=== PATIENT | male | born 1980 | race Caucasian/White ===

== ENCOUNTER 2016-09-19 00:56 | Inpatient (IN) | payer OTHER ==
--- NOTE | 2016-09-19 01:16 | HP ---
COWS - Scale Resting Pulse: 1= [place] 81-100 Sweatin=Flushed/Facial Moisture Restless Observation: 5= Unable to Sit Still Pupil Size: 2= Moderately Dilated Bone or Joint Aches: 2= Severe Diffuse Aches Runny Nose/ Eye Tearin= Nasal Congestion GI Upset > 30mins: 1= Stomach Cramp Tremor Observation: 2= Slight Tremor Visible Yawning Observation: 1= 1-2x During Session Anxiety or Irritability: 4=Extreme Anxiety Goose Flesh Skin: 0=Smooth Skin COWS Score: 21 Admission ROS S - HPI Chief Complaint: c/o of opiate withdrawal sx's. seeking detox txment Allergies/Adverse Reactions: Allergies Allergy/AdvReac Type Severity Reaction Status Date / Time No Known Allergies Allergy Verified 09/19/16 01:08 History of Present Illness: 35 Y.O. MALE KNOWN TO [facility] ADMITTED FOR DETOX TXMENT. DENIES RECENT DETOX/REHAB SERVICES. REPORTS LONGEST CLEAN TIME 2 YEARS WHILE IN OP PROGRAM. Exam Limitations: No Limitations - Ebola screening Have you traveled outside of the country in the last 21 days: No Have you had contact with anyone from an Ebola affected area: No Have you been sick,other than usual withdrawal symptoms: No Do you have a fever: No - Review of Systems Constitutional: Chills, Loss of Appetite, Malaise, Night Sweats, Changes in sleep EENT: reports: No Symptoms Reported Respiratory: reports: No Symptoms reported Cardiac: reports: No Symptoms Reported GI: reports: Nausea, Poor Appetite, Vomiting : reports: No Symptoms Reported Musculoskeletal: reports: Back Pain, Joint Pain Integumentary: reports: No Symptoms Reported Neuro: reports: No Symptoms reported Endocrine: reports: No Symptoms Reported Hematology: reports: No Symptoms Reported Psychiatric: reports: Anxious Other Systems: Reviewed and Negative Patient History - Patient Medical History Hx Anemia: No Hx Asthma: No Hx Chronic Obstructive Pulmonary Disease (COPD): No Hx Cancer: No Hx Cardiac Disorders: No Hx Congestive Heart Failure: No Hx Hypertension: No Hx Hypercholesterolemia: No Hx Pacemaker: No HX Cerebrovascular Accident: No Hx Seizures: Yes (01/2015 R/T K2) Hx Dementia: No Hx Diabetes: No Hx Gastrointestinal Disorders: No Hx Liver Disease: No Hx Genitourinary Disorders: No Hx Sexually Transmitted Disorders: No Hx Renal Disease (ESRD): No Hx Thyroid Disease: No Hx Human Immunodeficiency Virus (HIV): No Hx Hepatitis C: No Hx Depression: No Hx Suicide Attempt: No Hx Bipolar Disorder: Yes (NO MED MGMT) Hx Schizophrenia: No Other Medical History: DENIES - Patient Surgical History Past Surgical History: No Hx Neurologic Surgery: No Hx Cataract Extraction: No Hx Cardiac Surgery: No Hx Lung Surgery: No Hx Breast Surgery: No Hx Breast Biopsy: No Hx Abdominal Surgery: No Hx Appendectomy: No Hx Cholecystectomy: No Hx Genitourinary Surgery: No Hx Section: No Hx Orthopedic Surgery: No Anesthesia Reaction: No - PPD History Previous Implant?: Yes Documented Results: Negative w/o proof Implanted On Prior [facility] Admission?: Yes Date: 09/18/14 PPD to be Administered?: Yes - Smoking Cessation Smoking history: Current every day smoker Have you smoked in the past 12 months: Yes Aproximately how many cigarettes per day: 10 Cigars Per Day: 0 Hx Chewing Tobacco Use: No Initiated information on smoking cessation: Yes 'Breaking Loose' booklet given: 09/19/16 - Substance & Tx. History Hx Alcohol Use: No Hx Substance Use: Yes Substance Use Type: Heroin, Marijuana Hx Substance Use Treatment: Yes ([facility]) - Substances Abused HEROIN Route: Inhalation Frequency: Daily Amount used: 5 BAGS Age of first use: 11 Date of Last Use: 09/18/16 THC Route: Smoking Frequency: Daily Amount used: 3 BLUNTS Age of first use: 9 Date of Last Use: 09/18/16 Family Disease History - Family Disease History Family History: Unable to Obtain (DOES NOT WANT TO DISCUSS FAMILY SUBSTANCE ABUSE HX) Family Disease History: Respiratory: Mother (ASTHMA), Other: Father ( MVA) Admission Physical Exam [facility] Physical General Appearance: Yes: Appropriately Dressed, Mild Distress, Anxious HEENTM: Yes: EOMI, Normocephalic, Normal Voice, MANA, Pharynx Normal Respiratory: Yes: Chest Non-Tender, Lungs Clear, Normal Breath Sounds, No Respiratory Distress, No Accessory Muscle Use Neck: Yes: No masses,lesions,Nodules, Supple, Trachea in good position Breast: Yes: Breast Exam Deferred Cardiology: Yes: Regular Rhythm, Regular Rate, S1, S2 Abdominal: Yes: Normal Bowel Sounds, Non Tender, Soft Genitourinary: Yes: Within Normal Limits Back: Yes: Other (HEALING ABRASION) Musculoskeletal: Yes: full range of Motion, Gait Steady Extremities: Yes: Normal Capillary Refill, Normal Range of Motion, Non-Tender, Tremors 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, Fully Oriented, Alert, Motor Strength 5/5 Integumentary: Yes: Normal Color, Warm Lymphatic: Yes: Within Normal Limits - Diagnostic (1) Opioid dependence with withdrawal Current Visit: Yes Status: Chronic (2) Cannabis dependence Current Visit: Yes Status: Chronic (3) Nicotine dependence Current Visit: No Status: Chronic Qualifiers: Nicotine product type: cigarettes Substance use status: uncomplicated Qualified Code(s): F17.210 - Nicotine dependence, cigarettes, uncomplicated Cleared for Admission S - Detox or Rehab [facility] Level of Care: Medically Managed Detox Regimen/Protocol: Methadone S Breath Alcohol Content Breath Alcohol Content: 0 Vital Signs - Vital Signs Vital Signs Refused: No Temperature: 99.4 F Temperature Source: Oral Pulse Rate: 84 Respiratory Rate: 20 Blood Pressure: 101/60 BP Location: Left Arm Blood Pressure Position: Sitting - Height Height: 5 ft 10 in - Weight Weight: 66.678 kg Weight Measurement Method: Standing Scale Body Mass Index (BMI): 21.1 Urine Drug Screen - Test Device Lot Number: [id number] Expiration Date: 06/02/18 - Control Is Test Valid: Yes - Results Drug Screen Negative: No Urine Drug Screen Results: THC-Marijuana, OPI-Opiates
[2016-09-19 01:29] VITALS: BMI 21.1
[2016-09-19] MEDS ORDERED: METHADONE HCL 10 MG TABLET (FOR DETOX USE ONLY) PO ONE ×3 (01:29→23:00)
[2016-09-19] MEDS ORDERED: LOPERAMIDE HCL 2 MG CAPSULE PO PRN (01:29)
[2016-09-19] MEDS ORDERED: MAGNESIUM HYDROX 2400MG/30ML ORAL SUSPENSION 30 ML CUP PO PRN (01:29)
[2016-09-19] MEDS ORDERED: diphenhydrAMINE HCL 50 MG CAPSULE PO PRN (01:29)
[2016-09-19] MEDS ORDERED: NICOTINE POLACRILEX 2 MG GUM BC PRN (01:29)
[2016-09-19] MEDS ORDERED: MAGNESIUM CITRATE 300 ML BOTTLE PO PRN (01:29)
[2016-09-19] MEDS ORDERED: MENTHOL/PHENOL 1 EACH UD MM PRN (01:29)
[2016-09-19] MEDS ORDERED: ACETAMINOPHEN 325 MG TABLET (FP) PO PRN (01:29)
[2016-09-19] MEDS ORDERED: IBUPROFEN 400 MG TABLET (FP) PO PRN (01:29)
[2016-09-19] MEDS ORDERED: MAG HYDROX/AL HYDROX/SIMETH 30 ML UNIT-DOSE CUP PO PRN (01:29)
[2016-09-19] MEDS ORDERED: guaiFENesin/D-METHORPHAN HB 10 ML UNIT-DOSE CUPS PO PRN (01:29)
[2016-09-19] MEDS ORDERED: P-EPHED 60MG/TRIPROLIDI 2.5MG TABLET PO PRN (01:29)
[2016-09-19] MEDS ORDERED: diazePAM 5 MG TABLET PO PRN (01:29)
[2016-09-19] MEDS ORDERED: NICOTINE 14 MG/24 HOURS TOPICAL PATCH TD SCH (10:00)
[2016-09-19] MEDS ORDERED: PRENATAL VITAMINS W/ FOLIC ACID TABLET (FP) PO SCH (10:00)
[2016-09-19 10:02] LABS: BASOPHIL 0.8 % (0-2.0); MCH 30.6 pg (25.7-33.7); MCHC 34.5 g/dl (32.0-35.9); MEAN CELL VOLUME 88.7 fl (80-96); MEAN PLT VOLUME 12.2 fl (7.5-11.1); NEUTROPHILS 57.3 % (42.8-82.8); PLATELET COUNT 145 K/MM3 (134-434); RDW 13.3 % (11.9-15.9); WHITE BLOOD COUNT 7.6 K/mm3 (4.0-10.0)
[2016-09-19 10:09] LABS: ALBUMIN 3.6 g/dl (3.4-5.0); ANION GAP 9 (8-16); BILIRUBIN,TOTAL 0.6 mg/dL (0.2-1.0); CO2 31 mmol/L (21-32); COCKROFT - GAULT 121.54; CREATININE 0.8 mg/dL (0.7-1.3); GLUCOSE,RANDOM 99 mg/dL (74-106); SGOT/AST 12 U/L (15-37); SGPT/ALT 18 U/L (12-78); TOT PROT 6.6 g/dl (6.4-8.2)
[2016-09-19 10:10] LABS: ALK PHOS 51 U/L (45-117)
[2016-09-19] MEDS ORDERED: CYCLOBENZAPRINE HCL 10 MG TABLET (FP) PO PRN (11:14)
--- NOTE | 2016-09-19 11:14 | PN ---
S COWS - Scale Resting Pulse: 0= [place] 80 or Below Sweatin= Chills/Flushing Restless Observation: 3= Extraneous Movement Pupil Size: 1= Pupils >than Normal Bone or Joint Aches: 2= Severe Diffuse Aches Runny Nose/ Eye Tearin= Runny Nose/Eyes GI Upset > 30mins: 3= Vomiting/Diarrhea Tremor Observation of Outstretched Hands: 2= Slight Tremor Visible Yawning Observation: 1= 1-2x During Session Anxiety or Irritability: 2=Irritable/Anxious Goose Flesh Skin: 0=Smooth Skin COWS Score: 17 S Progress Note (SOAP) Subjective: ALERT,IRRITABLE,ANXIOUS,INTERRUPTED SLEEP,PAIN IN THE BODY AND BACK,TREMOR Objective: 09/19/16 11:12 Vital Signs Temperature 98.2 F 09/19/16 06:34 Pulse Rate 55 L 09/19/16 06:34 Respiratory Rate 16 09/19/16 06:34 Blood Pressure 103/72 09/19/16 06:34 O2 Sat by Pulse Oximetry (%) EKG NSR Laboratory Last Values WBC 7.6 K/mm3 (4.0-10.0) 09/19/16 07:50 RBC 4.43 M/mm3 (4.00-5.60) 09/19/16 07:50 Hgb 13.6 GM/dL (11.7-16.9) 09/19/16 07:50 Hct 39.3 % (35.4-49) 09/19/16 07:50 MCV 88.7 fl (80-96) 09/19/16 07:50 MCHC 34.5 g/dl (32.0-35.9) 09/19/16 07:50 RDW 13.3 % (11.9-15.9) 09/19/16 07:50 Plt Count 145 K/MM3 (134-434) D 09/19/16 07:50 MPV 12.2 fl (7.5-11.1) H 09/19/16 07:50 Neutrophils % 57.3 % (42.8-82.8) 09/19/16 07:50 Lymphocytes % 30.3 % (8-40) 09/19/16 07:50 Monocytes % 10.6 % (3.8-10.2) H 09/19/16 07:50 Eosinophils % 1.0 % (0-4.5) 09/19/16 07:50 Basophils % 0.8 % (0-2.0) 09/19/16 07:50 Sodium 139 mmol/L (136-145) 09/19/16 07:50 Potassium 3.6 mmol/L (3.5-5.1) 09/19/16 07:50 Chloride 99 mmol/L (98-107) D 09/19/16 07:50 Carbon Dioxide 31 mmol/L (21-32) 09/19/16 07:50 Anion Gap 9 (8-16) 09/19/16 07:50 BUN 11 mg/dL (7-18) 09/19/16 07:50 Creatinine 0.8 mg/dL (0.7-1.3) 09/19/16 07:50 Creat Clearance w eGFR > 60 (>60) 09/19/16 07:50 Random Glucose 99 mg/dL (74-106) 09/19/16 07:50 Calcium 9.0 mg/dL (8.5-10.1) 09/19/16 07:50 Total Bilirubin 0.6 mg/dL (0.2-1.0) D 09/19/16 07:50 AST 12 U/L (15-37) L 09/19/16 07:50 ALT 18 U/L (12-78) D 09/19/16 07:50 Alkaline Phosphatase 51 U/L (45-117) 09/19/16 07:50 Total Protein 6.6 g/dl (6.4-8.2) 09/19/16 07:50 Albumin 3.6 g/dl (3.4-5.0) 09/19/16 07:50 Assessment: 09/19/16 11:13 WITHDRAWAL SYMPTOM Plan: CONTINUE DETOX
[2016-09-19] MEDS ORDERED: cloNIDine HCL 0.1 MG TABLET ONE (11:48)
--- NOTE | 2016-09-19 12:18 | EKG ---
Test Reason : Blood Pressure : / mmHG Vent. Rate : 060 BPM Atrial Rate : 060 BPM P-R Int : 136 ms QRS Dur : 090 ms QT Int : 394 ms P-R-T Axes : 041 077 067 degrees QTc Int : 394 ms NORMAL SINUS RHYTHM NORMAL ECG NO PREVIOUS ECGS AVAILABLE Confirmed by MD TIKA, ALONZO ([id number]) on 09/19/2016 12:18:27 PM Referred By: Confirmed By:ALONZO VILLELA MD
[2016-09-19 12:43] LABS: HIV 1 & 2 AB NEGATIVE; HIV 1 AGp24 NEGATIVE
[2016-09-19 18:03] VITALS: BP 120/59; PULSE 81; TEMP 97.9
--- NOTE | 2016-09-19 20:32 | PN ---
S Progress Note Note: patient did not want to complete treatment,signed release ama,did not want to wait
--- NOTE | 2016-09-19 20:37 | DS ---
[facility] Detox Discharge Summary Admission Date: 09/19/16 Discharge Date: 09/19/16 - History Present History: Cannabis Dependence, Opioid Dependence Additional Comments: patient did not want to complete treatment,singed release ama,did not want to wait Pertinent Past History: nicotine dependence bipolar disorder - Physical Exam Results Vital Signs: Vital Signs Temperature 97.9 F 09/19/16 18:02 Pulse Rate 81 09/19/16 18:02 Respiratory Rate 18 09/19/16 18:02 Blood Pressure 120/59 09/19/16 18:02 O2 Sat by Pulse Oximetry (%) Pertinent Admission Physical Exam Findings: withdrawal symptom - Medication Discharge Medications: Ambulatory Orders Divalproex [Depakote -] 1,000 mg PO HS 09/16/14 Amox-Tr/K Cl [Augmentin 500-125mg Tablet -] 1 each PO TIDCM #14 tablet 03/01/15 - AMA Did Patient Leave Against Medical Advice: Yes
[2016-09-19] MEDS ORDERED: THIAMINE HCL 100 MG TABLET (FP) PO SCH (22:00)
[2016-09-19] MEDS ORDERED: cloNIDine HCL 0.1 MG TABLET PO SCH (22:00)
[2016-09-20] MEDS ORDERED: METHADONE HCL 10 MG TABLET (FOR DETOX USE ONLY) PO ONE (10:00)
[2016-09-21] MEDS ORDERED: METHADONE HCL 5 MG TABLET (FOR DETOX USE ONLY) PO ONE (10:00)
[2016-09-22] MEDS ORDERED: METHADONE HCL 5 MG TABLET (FOR DETOX USE ONLY) PO ONE (10:00)
[2016-09-23] MEDS ORDERED: METHADONE HCL 10 MG TABLET (FOR DETOX USE ONLY) PO ONE (10:00)
[2016-09-24] MEDS ORDERED: METHADONE HCL 5 MG TABLET (FOR DETOX USE ONLY) PO ONE (06:00)
== END 2016-09-19 21:30 | disposition left against medical advice (07) | DRG 894 ==
LOC: YASAS 00:56 → Y6N 01:28
PROVIDERS: ADMIT Internal Medicine; ATTEND Internal Medicine
PROC: HZ2ZZZZ Detoxification Services for Substance Abuse Treatment (ICD-10-PCS; principal; 2016-09-19)
DX: F11.23 Opioid dependence with withdrawal (principal); F12.20 Cannabis dependence, uncomplicated; F17.210 Nicotine dependence, cigarettes, uncomplicated; F31.9 Bipolar disorder, unspecified; J45.909 Unspecified asthma, uncomplicated
CPT/HCPCS: 36415; 80053; 85025; 86593; 86803; 87389; 93005; 93010

== ENCOUNTER 2017-01-15 01:06 | Inpatient (IN) | payer OTHER ==
--- NOTE | 2017-01-15 01:36 | HP ---
COWS - Scale Resting Pulse: 0= [place] 80 or Below Sweatin= Chills/Flushing Restless Observation: 1= Difficult to Sit Still Pupil Size: 0= Normal to Room Light Bone or Joint Aches: 4=Acute Joint/Muscle Pain Runny Nose/ Eye Tearin= None GI Upset > 30mins: 2= Nausea/Diarrhea Tremor Observation: 2= Slight Tremor Visible Yawning Observation: 1= 1-2x During Session Anxiety or Irritability: 4=Extreme Anxiety Goose Flesh Skin: 0=Smooth Skin COWS Score: 15 Admission ROS S - HPI Chief Complaint: c/o opiate withdrawal sx's. seeking detox txment Allergies/Adverse Reactions: Allergies Allergy/AdvReac Type Severity Reaction Status Date / Time No Known Allergies Allergy Verified 01/15/17 01:31 History of Present Illness: 36 Y.O. MALE KNOWN TO [facility] ADMITTED FOR DETOX TXMENT. DENIES RECENT DETOX/REHAB SERVICES. REPORTS LONGEST CLEAN TIME 2 YEARS WHILE IN OP PROGRAM. CLIENT HAS A H /O OF MULTIPLE AMA. D/W CLIENT AT LENGTH ABOUT COMPLIANCE AND ADHERING TO TXMENT. CLIENT AGREES TO COMPLETE LOS AT THIS TIME. CLIENT IS A POOR HISTORIAN Exam Limitations: No Limitations - Ebola screening Have you traveled outside of the country in the last 21 days: No Have you had contact with anyone from an Ebola affected area: No Have you been sick,other than usual withdrawal symptoms: No Do you have a fever: No - Review of Systems Constitutional: Chills, Malaise, Night Sweats EENT: reports: Dental Problems (MISSING TEETH) Respiratory: reports: No Symptoms reported Cardiac: reports: No Symptoms Reported GI: reports: Nausea : reports: No Symptoms Reported Musculoskeletal: reports: Joint Pain Integumentary: reports: Erythema (BUE) Neuro: reports: No Symptoms reported Endocrine: reports: No Symptoms Reported Hematology: reports: No Symptoms Reported Psychiatric: reports: Agitated, Anxious Other Systems: Reviewed and Negative Patient History - Patient Medical History Hx Anemia: No Hx Asthma: No Hx Chronic Obstructive Pulmonary Disease (COPD): No Hx Cancer: No Hx Cardiac Disorders: No Hx Congestive Heart Failure: No Hx Hypertension: No Hx Hypercholesterolemia: No Hx Pacemaker: No HX Cerebrovascular Accident: No Hx Seizures: Yes (01/2015 R/T K2) Hx Dementia: No Hx Diabetes: No Hx Gastrointestinal Disorders: No Hx Liver Disease: No Hx Genitourinary Disorders: No Hx Sexually Transmitted Disorders: No Hx Renal Disease (ESRD): No Hx Thyroid Disease: No Hx Human Immunodeficiency Virus (HIV): No Hx Hepatitis C: No Hx Depression: No Hx Suicide Attempt: No Hx Bipolar Disorder: Yes (NO MED MGMT) Hx Schizophrenia: No Other Medical History: DENIES - Patient Surgical History Past Surgical History: No Hx Neurologic Surgery: No Hx Cataract Extraction: No Hx Cardiac Surgery: No Hx Lung Surgery: No Hx Breast Surgery: No Hx Breast Biopsy: No Hx Abdominal Surgery: No Hx Appendectomy: No Hx Cholecystectomy: No Hx Genitourinary Surgery: No Hx Section: No Hx Orthopedic Surgery: No Anesthesia Reaction: No - PPD History Previous Implant?: Yes Documented Results: Negative w/proof Implanted On Prior [facility] Admission?: Yes Date: 09/21/16 PPD to be Administered?: Yes - Smoking Cessation Smoking history: Former smoker Have you smoked in the past 12 months: Yes Aproximately how many cigarettes per day: 10 Cigars Per Day: 0 Hx Chewing Tobacco Use: No Initiated information on smoking cessation: Yes 'Breaking Loose' booklet given: 01/15/17 - Substance & Tx. History Hx Alcohol Use: No Hx Substance Use: Yes Substance Use Type: Heroin Hx Substance Use Treatment: Yes ([facility]) - Substances Abused HEROIN Route: Inhalation Frequency: Daily Amount used: 5 BAGS Age of first use: 15 Date of Last Use: 01/14/17 THC Route: Smoking Frequency: Daily Amount used: 1 BLUNT Age of first use: 9 Date of Last Use: 01/13/17 Family Disease History - Family Disease History Family Disease History: Respiratory: Mother (ASTHMA), Other: Father ( MVA) Admission Physical Exam [facility] - Physical General Appearance: Yes: Tremorous, Irritable HEENTM: Yes: EOMI, Normocephalic, Pharynx Normal Respiratory: Yes: Chest Non-Tender, Lungs Clear, Normal Breath Sounds, No Respiratory Distress, No Accessory Muscle Use Neck: Yes: No masses,lesions,Nodules, Supple, Trachea in good position Breast: Yes: Breast Exam Deferred Cardiology: Yes: Regular Rhythm, Regular Rate, S1, S2 Abdominal: Yes: Normal Bowel Sounds, Non Tender, Flat, Soft Genitourinary: Yes: Within Normal Limits Back: Yes: Normal Inspection Musculoskeletal: Yes: full range of Motion, Gait Steady Extremities: Yes: Normal Capillary Refill, Normal Range of Motion, Non-Tender, Tremors 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, Fully Oriented, Alert, Motor Strength 5/5 Integumentary: Yes: Warm, Erythema (FROM REPORTED [place]QU[place] BITES TO BUE) Lymphatic: Yes: Within Normal Limits - Diagnostic (1) Cannabis dependence Current Visit: Yes Status: Chronic (2) Opioid dependence with withdrawal Current Visit: Yes Status: Chronic Cleared for Admission [facility] - Detox or Rehab [facility] Level of Care: Medically Managed Detox Regimen/Protocol: Methadone [facility] Breath Alcohol Content Breath Alcohol Content: 0 Vital Signs - Vital Signs Vital Signs Refused: Yes Temperature: 97.5 F Temperature Source: Oral Pulse Rate: 75 Respiratory Rate: 18 Blood Pressure: 106/66 BP Location: Left Arm Blood Pressure Position: Sitting - Height Height: 5 ft 7 in - Weight Weight: 65.317 kg Weight Measurement Method: Standing Scale Body Mass Index (BMI): 22.5 Urine Drug Screen - Test Device Lot Number: [id number] Expiration Date: 09/30/18 - Control Is Test Valid: Yes - Results Drug Screen Negative: No Urine Drug Screen Results: THC-Marijuana, OPI-Opiates
[2017-01-15 01:41] VITALS: BP 106/66; PULSE 75; TEMP 97.5
[2017-01-15 01:47] VITALS: BMI 22.5
[2017-01-15] MEDS ORDERED: ACETAMINOPHEN 325 MG TABLET (FP) PO PRN (01:51)
[2017-01-15] MEDS ORDERED: METHADONE HCL 10 MG TABLET (FOR DETOX USE ONLY) PO ONE ×3 (01:51→23:00)
[2017-01-15] MEDS ORDERED: diazePAM 5 MG TABLET PO PRN (01:51)
[2017-01-15] MEDS ORDERED: MENTHOL/PHENOL 1 EACH UD MM PRN (01:51)
[2017-01-15] MEDS ORDERED: LOPERAMIDE HCL 2 MG CAPSULE PO PRN (01:51)
[2017-01-15] MEDS ORDERED: diphenhydrAMINE HCL 50 MG CAPSULE PO PRN (01:51)
[2017-01-15] MEDS ORDERED: MAG HYDROX/AL HYDROX/SIMETH 30 ML UNIT-DOSE CUP PO PRN (01:51)
[2017-01-15] MEDS ORDERED: MAGNESIUM CITRATE 300 ML BOTTLE PO PRN (01:51)
[2017-01-15] MEDS ORDERED: IBUPROFEN 400 MG TABLET (FP) PO PRN (01:51)
[2017-01-15] MEDS ORDERED: NICOTINE POLACRILEX 2 MG GUM BC PRN (01:51)
[2017-01-15] MEDS ORDERED: MAGNESIUM HYDROX 2400MG/30ML ORAL SUSPENSION 30 ML CUP PO PRN (01:51)
[2017-01-15] MEDS ORDERED: P-EPHED 60MG/TRIPROLIDI 2.5MG TABLET PO PRN (01:51)
[2017-01-15] MEDS ORDERED: guaiFENesin/D-METHORPHAN HB 10 ML UNIT-DOSE CUPS PO PRN (01:51)
--- NOTE | 2017-01-15 09:37 | PN ---
[facility] Progress Note Note: Patient resting comfortably in bed, NAD noted. Vital Signs - 24 hr 01/15/17 01/15/17 01:49 03:30 Temperature 97.5 F L Pulse Rate 75 Respiratory 18 18 Rate Blood Pressure 106/66 labs pending
[2017-01-15 09:43] LABS: MCH 30.2 pg (25.7-33.7); MCHC 33.3 g/dl (32.0-35.9); MEAN CELL VOLUME 90.7 fl (80-96); MEAN PLT VOLUME 10.9 fl (7.5-11.1); PLATELET COUNT 162 K/MM3 (134-434); RDW 13.1 % (11.9-15.9); WHITE BLOOD COUNT 6.4 K/mm3 (4.0-10.0)
[2017-01-15] MEDS ORDERED: PRENATAL VITAMINS W/ FOLIC ACID TABLET (FP) PO SCH (10:00)
[2017-01-15 10:08] LABS: ALBUMIN 3.1 g/dl (3.4-5.0); ALK PHOS 51 U/L (45-117); ANION GAP 4 (8-16); BILIRUBIN,TOTAL 0.2 mg/dL (0.2-1.0); CALCIUM 8.5 mg/dL (8.5-10.1); CO2 31 mmol/L (21-32); CREATININE 0.6 mg/dL (0.7-1.3); GLUCOSE,RANDOM 94 mg/dL (74-106); SGOT/AST 18 U/L (15-37); SGPT/ALT 20 U/L (12-78); TOT PROT 5.8 g/dl (6.4-8.2)
--- NOTE | 2017-01-15 10:27 | PN ---
[facility] Progress Note Note: Patient at front desk agent requesting to leave, no reason given, risks and benefits of leaving and not completing detox, discussed with patient and counselor, nursing notified,. Patient will sign out AMA.
--- NOTE | 2017-01-15 10:29 | DS ---
[facility] Detox Discharge Summary Admission Date: 01/15/17 Discharge Date: 01/15/17 - History Present History: Cannabis Dependence, Opioid Dependence Pertinent Past History: nicotine dependence, anixeyt, depression, insomnia - Physical Exam Results Vital Signs: Vital Signs Temperature 97.5 F L 01/15/17 01:49 Pulse Rate 75 01/15/17 01:49 Respiratory Rate 18 01/15/17 03:30 Blood Pressure 106/66 01/15/17 01:49 O2 Sat by Pulse Oximetry (%) Laboratory Tests 01/15/17 01/15/17 07:50 07:50 WBC 6.4 RBC 4.16 Hgb 12.6 Hct 37.7 MCV 90.7 MCH 30.2 MCHC 33.3 RDW 13.1 Plt Count 162 MPV 10.9 D Sodium 141 Potassium 4.1 Chloride 106 Carbon Dioxide 31 Anion Gap 4 L BUN 11 Creatinine 0.6 L D Creat Clearance w eGFR > 60 Random Glucose 94 Calcium 8.5 Total Bilirubin 0.2 D AST 18 D ALT 20 Alkaline Phosphatase 51 Total Protein 5.8 L Albumin 3.1 L Pertinent Admission Physical Exam Findings: withdrawal sx - Treatment Hospital Course: Detox Protocol Followed Patient has Accepted a Rehab Referral to: No - Medication Discharge Medications: Ambulatory Orders Divalproex [Depakote -] 1,000 mg PO HS 09/16/14 Amox-Tr/K Cl [Augmentin 500-125mg Tablet -] 1 each PO TIDCM #14 tablet 03/01/15 - Diagnosis (1) Cannabis dependence Current Visit: Yes Status: Chronic (2) Opioid dependence with withdrawal Current Visit: Yes Status: Chronic (3) Syncope Current Visit: No Status: Active (4) AMA - Signed out against medical advice Current Visit: No Status: Acute (5) Abscess Current Visit: No Status: Acute (6) Bipolar disorder Current Visit: No Status: Acute (7) Anxiety disorder Current Visit: No Status: Chronic (8) Nicotine dependence Current Visit: No Status: Chronic Qualifiers: Nicotine product type: cigarettes Substance use status: uncomplicated Qualified Code(s): F17.210 - Nicotine dependence, cigarettes, uncomplicated - AMA Did Patient Leave Against Medical Advice: Yes
[2017-01-15] MEDS ORDERED: THIAMINE HCL 100 MG TABLET (FP) PO SCH (22:00)
[2017-01-16] MEDS ORDERED: METHADONE HCL 10 MG TABLET (FOR DETOX USE ONLY) PO ONE (10:00)
[2017-01-17] MEDS ORDERED: METHADONE HCL 5 MG TABLET (FOR DETOX USE ONLY) PO ONE (10:00)
[2017-01-18] MEDS ORDERED: METHADONE HCL 5 MG TABLET (FOR DETOX USE ONLY) PO ONE (10:00)
--- NOTE | 2017-01-18 17:04 | EKG ---
Test Reason : Blood Pressure : / mmHG Vent. Rate : 066 BPM Atrial Rate : 066 BPM P-R Int : 142 ms QRS Dur : 090 ms QT Int : 388 ms P-R-T Axes : 067 084 069 degrees QTc Int : 406 ms NORMAL SINUS RHYTHM NORMAL ECG WHEN COMPARED WITH ECG OF 19-SEP-2016 01:13, NO SIGNIFICANT CHANGE WAS FOUND Confirmed by LISSETT BURGOS MD ([id number]) on 01/18/2017 5:03:40 PM Referred By: Confirmed By:LISSETT BURGOS MD
[2017-01-19] MEDS ORDERED: METHADONE HCL 10 MG TABLET (FOR DETOX USE ONLY) PO ONE (10:00)
[2017-01-20] MEDS ORDERED: METHADONE HCL 5 MG TABLET (FOR DETOX USE ONLY) PO ONE (06:00)
== END 2017-01-15 10:51 | disposition left against medical advice (07) | DRG 894 ==
LOC: YASAS 01:06 → Y6N 01:51
PROVIDERS: ADMIT Internal Medicine Addiction Medicine; ATTEND Internal Medicine Addiction Medicine
PROC: HZ2ZZZZ Detoxification Services for Substance Abuse Treatment (ICD-10-PCS; principal; 2017-01-15)
DX: F11.23 Opioid dependence with withdrawal (principal); G40.509 Epileptic seizures related to external causes, not intractable, without status epilepticus; F12.20 Cannabis dependence, uncomplicated; F17.210 Nicotine dependence, cigarettes, uncomplicated; F41.9 Anxiety disorder, unspecified; F31.9 Bipolar disorder, unspecified; R55 Syncope and collapse
CPT/HCPCS: 36415; 80053; 85027; 86593; 93005; 93010

== ENCOUNTER 2017-04-28 21:36 | Inpatient (IN) | payer OTHER ==
[2017-04-28 22:21] VITALS: BMI 22.5
--- NOTE | 2017-04-28 22:45 | HP ---
COWS - Scale Resting Pulse: 0= [place] 80 or Below Sweatin=Flushed/Facial Moisture Restless Observation: 1= Difficult to Sit Still Pupil Size: 1= Pupils >than Normal Bone or Joint Aches: 2= Severe Diffuse Aches Runny Nose/ Eye Tearin= Runny Nose/Eyes GI Upset > 30mins: 3= Vomiting/Diarrhea (vomiting x 6, diarrhea x 3) Tremor Observation: 2= Slight Tremor Visible Yawning Observation: 1= 1-2x During Session Anxiety or Irritability: 4=Extreme Anxiety Goose Flesh Skin: 0=Smooth Skin COWS Score: 18 Admission [facility] Chief Complaint: Withdrawal symptoms Allergies/Adverse Reactions: Allergies Allergy/AdvReac Type Severity Reaction Status Date / Time No Known Allergies Allergy Verified 01/15/17 01:31 History of Present Illness: 36 years old male with long history of heroin dependence is admitted to detox. Patient has been in previous detox and reports a year of sobriety. He has medical history of seizure disorder. He denies suicidal ideation at this time. Exam Limitations: No Limitations - Ebola screening Have you traveled outside of the country in the last 21 days: No Have you had contact with anyone from an Ebola affected area: No Have you been sick,other than usual withdrawal symptoms: No Do you have a fever: No - Review of Systems Constitutional: Chills, Loss of Appetite, Malaise, Night Sweats, Changes in sleep, Weakness, Unexplained wgt Loss (reports weight loss of about 5 pounds) EENT: reports: No Symptoms Reported Respiratory: reports: No Symptoms reported Cardiac: reports: No Symptoms Reported GI: reports: Diarrhea, Poor Appetite, Poor Fluid Intake, Vomiting, Abdominal cramping : reports: No Symptoms Reported Musculoskeletal: reports: Back Pain, Muscle Pain, Muscle Weakness, Neck Pain Integumentary: reports: Dryness, Flushing Neuro: reports: Tingling, Tremors Endocrine: reports: No Symptoms Reported Hematology: reports: No Symptoms Reported Psychiatric: reports: No Sypmtoms Reported, Orientated x3, Agitated, Anxious Other Systems: Reviewed and Negative Patient History - Patient Medical History Hx Anemia: No Hx Asthma: No Hx Chronic Obstructive Pulmonary Disease (COPD): No Hx Cancer: No Hx Cardiac Disorders: No Hx Congestive Heart Failure: No Hx Hypertension: No Hx Hypercholesterolemia: No Hx Pacemaker: No HX Cerebrovascular Accident: No Hx Seizures: Yes (2014) Hx Dementia: No Hx Diabetes: No Hx Gastrointestinal Disorders: No Hx Liver Disease: No Hx Genitourinary Disorders: No Hx Sexually Transmitted Disorders: No Hx Renal Disease (ESRD): No Hx Thyroid Disease: No Hx Human Immunodeficiency Virus (HIV): No Hx Hepatitis C: No Hx Depression: No Hx Suicide Attempt: No Hx Bipolar Disorder: Yes (NO MED MGMT) Hx Schizophrenia: No - Patient Surgical History Past Surgical History: No Hx Neurologic Surgery: No Hx Cataract Extraction: No Hx Cardiac Surgery: No Hx Lung Surgery: No Hx Abdominal Surgery: No Hx Appendectomy: No Hx Cholecystectomy: No Hx Genitourinary Surgery: No Hx Section: No Hx Orthopedic Surgery: No Anesthesia Reaction: No - PPD History Previous Implant?: Yes Documented Results: Negative w/proof Implanted On Prior [facility] Admission?: Yes Date: 01/17/17 PPD to be Administered?: No - Reproductive History Patient is a Female of Child Bearing Age (11 -55 yrs old): No (Male) - Smoking Cessation Smoking history: Current every day smoker Have you smoked in the past 12 months: Yes Aproximately how many cigarettes per day: 10 Cigars Per Day: 0 Hx Chewing Tobacco Use: No Initiated information on smoking cessation: Yes 'Breaking Loose' booklet given: 04/28/17 - Substance & Tx. History Hx Alcohol Use: Yes Hx Substance Use: Yes Substance Use Type: Heroin, Marijuana, Opiates Hx Substance Use Treatment: Yes ([facility]) - Substances Abused Heroin Route: Inhalation Frequency: Daily Amount used: 6 bags Age of first use: 11 Date of Last Use: 04/28/17 Marijuana/Hashish Route: Smoking Frequency: Daily Amount used: 3 blounts Age of first use: 9 Date of Last Use: 04/27/17 Family Disease History - Family Disease History Family Disease History: Respiratory: Mother (ASTHMA), Other: Father ( MVA) Admission Physical Exam BHS - Vital Signs Vital Signs: Vital Signs - 24 hr 04/28/17 22:18 Temperature 97 F L Pulse Rate 62 Respiratory 18 Rate Blood Pressure 103/59 - Physical General Appearance: Yes: Moderate Distress, Tremorous, Irritable, Sweating, Anxious HEENTM: Yes: EOMI, Normal Voice, MANA Respiratory: Yes: Lungs Clear, Normal Breath Sounds, No Respiratory Distress Neck: Yes: No masses,lesions,Nodules, Supple, Trachea in good position Breast: Yes: Breast Exam Deferred Cardiology: Yes: Regular Rhythm, Regular Rate, S1, S2 Abdominal: Yes: Normal Bowel Sounds, Soft Genitourinary: Yes: Within Normal Limits Back: Yes: Within Normal Limits Musculoskeletal: Yes: Back pain, Muscle Pain, Muscle weakness Neurological: Yes: Alert, Normal Mood/Affect, Normal Response Integumentary: Yes: Dry, Warm Lymphatic: Yes: Within Normal Limits - Diagnostic (1) Seizure Current Visit: Yes Status: Chronic (2) Depression Current Visit: Yes Status: Chronic (3) Cannabis dependence Current Visit: Yes Status: Chronic (4) Nicotine dependence Current Visit: Yes Status: Chronic Qualifiers: Nicotine product type: cigarettes Substance use status: uncomplicated Qualified Code(s): F17.210 - Nicotine dependence, cigarettes, uncomplicated (5) Opioid dependence with withdrawal Current Visit: Yes Status: Chronic Cleared for Admission S - Detox or Rehab [facility] Level of Care: Medically Managed Detox Regimen/Protocol: Methadone S Breath Alcohol Content Breath Alcohol Content: 0 Urine Drug Screen - Results Drug Screen Negative: No Urine Drug Screen Results: THC-Marijuana, OPI-Opiates, BZO-Benzodiazepines
[2017-04-28] MEDS ORDERED: METHADONE HCL 10 MG TABLET (FOR DETOX USE ONLY) PO ONE ×2 (22:55→23:00)
[2017-04-28] MEDS ORDERED: MENTHOL/PHENOL 1 EACH UD MM PRN (22:55)
[2017-04-28] MEDS ORDERED: IBUPROFEN 400 MG TABLET (FP) PO PRN (22:55)
[2017-04-28] MEDS ORDERED: ACETAMINOPHEN 325 MG TABLET (FP) PO PRN (22:55)
[2017-04-28] MEDS ORDERED: guaiFENesin/D-METHORPHAN HB 10 ML UNIT-DOSE CUPS PO PRN (22:55)
[2017-04-28] MEDS ORDERED: MAGNESIUM CITRATE 300 ML BOTTLE PO PRN (22:55)
[2017-04-28] MEDS ORDERED: MAGNESIUM HYDROX 2400MG/30ML ORAL SUSPENSION 30 ML CUP PO PRN (22:55)
[2017-04-28] MEDS ORDERED: MAG HYDROX/AL HYDROX/SIMETH 30 ML UNIT-DOSE CUP PO PRN (22:55)
[2017-04-28] MEDS ORDERED: P-EPHED 60MG/TRIPROLIDI 2.5MG TABLET PO PRN (22:55)
[2017-04-28] MEDS ORDERED: NICOTINE POLACRILEX 2 MG GUM BC PRN (22:55)
[2017-04-28] MEDS ORDERED: LOPERAMIDE HCL 2 MG CAPSULE PO PRN (22:55)
[2017-04-29] MEDS: diazePAM 5 MG TABLET PO PRN ×2 (00:11→06:09)
[2017-04-29 09:55] LABS: HEMATOCRIT 44.3 % (35.4-49); HEMOGLOBIN 14.4 GM/dL (11.7-16.9); MCH 29.2 pg (25.7-33.7); MCHC 32.4 g/dl (32.0-35.9); MEAN CELL VOLUME 90.2 fl (80-96); MEAN PLT VOLUME 11.5 fl (7.5-11.1); PLATELET COUNT 180 K/MM3 (134-434); RBC 4.91 M/mm3 (4.00-5.60); RDW 13.2 % (11.9-15.9); WHITE BLOOD COUNT 5.3 K/mm3 (4.0-10.0)
[2017-04-29] MEDS ORDERED: PRENATAL VITAMINS W/ FOLIC ACID TABLET (FP) PO SCH (10:00)
[2017-04-29] MEDS ORDERED: NICOTINE 14 MG/24 HOURS TOPICAL PATCH TD SCH (10:00)
[2017-04-29] MEDS ORDERED: METHADONE HCL 10 MG TABLET (FOR DETOX USE ONLY) PO ONE ×2 (10:00→14:16)
[2017-04-29 10:06] LABS: CHLORIDE 100 mmol/L (98-107); POTASSIUM 4.2 mmol/L (3.5-5.1); SODIUM 138 mmol/L (136-145)
[2017-04-29 10:15] LABS: ALBUMIN 3.6 g/dl (3.4-5.0); ALK PHOS 59 U/L (45-117); ANION GAP 6 (8-16); BILIRUBIN,TOTAL 0.6 mg/dL (0.2-1.0); BLOOD UREA NITROGEN 9 mg/dL (7-18); CALCIUM 8.1 mg/dL (8.5-10.1); CO2 32 mmol/L (21-32); CREATININE 0.8 mg/dL (0.7-1.3); GLUCOSE,RANDOM 128 mg/dL (74-106); SGOT/AST 12 U/L (15-37); SGPT/ALT 19 U/L (12-78); TOT PROT 7.1 g/dl (6.4-8.2)
--- NOTE | 2017-04-29 10:57 | PN ---
S COWS - Scale Resting Pulse: 0= [place] 80 or Below Sweatin= Chills/Flushing Restless Observation: 3= Extraneous Movement S Progress Note (SOAP) Subjective: FATIGUE,SLEEPY DURING ROUNDS. Objective: 04/29/17 10:56 Vital Signs Temperature 97.2 F L 04/29/17 09:05 Pulse Rate 72 04/29/17 09:05 Respiratory Rate 20 04/29/17 09:05 Blood Pressure 105/71 04/29/17 09:05 O2 Sat by Pulse Oximetry (%) Laboratory Last Values WBC 5.3 K/mm3 (4.0-10.0) 04/29/17 07:30 RBC 4.91 M/mm3 (4.00-5.60) 04/29/17 07:30 Hgb 14.4 GM/dL (11.7-16.9) D 04/29/17 07:30 Hct 44.3 % (35.4-49) D 04/29/17 07:30 MCV 90.2 fl (80-96) 04/29/17 07:30 MCH 29.2 pg (25.7-33.7) 04/29/17 07:30 MCHC 32.4 g/dl (32.0-35.9) 04/29/17 07:30 RDW 13.2 % (11.9-15.9) 04/29/17 07:30 Plt Count 180 K/MM3 (134-434) 04/29/17 07:30 MPV 11.5 fl (7.5-11.1) H 04/29/17 07:30 Sodium 138 mmol/L (136-145) 04/29/17 07:30 Potassium 4.2 mmol/L (3.5-5.1) 04/29/17 07:30 Chloride 100 mmol/L (98-107) 04/29/17 07:30 Carbon Dioxide 32 mmol/L (21-32) 04/29/17 07:30 Anion Gap 6 (8-16) L 04/29/17 07:30 BUN 9 mg/dL (7-18) 04/29/17 07:30 Creatinine 0.8 mg/dL (0.7-1.3) D 04/29/17 07:30 Creat Clearance w eGFR > 60 (>60) 04/29/17 07:30 Random Glucose 128 mg/dL (74-106) H D 04/29/17 07:30 Calcium 8.1 mg/dL (8.5-10.1) L 04/29/17 07:30 Total Bilirubin 0.6 mg/dL (0.2-1.0) D 04/29/17 07:30 AST 12 U/L (15-37) L D 04/29/17 07:30 ALT 19 U/L (12-78) 04/29/17 07:30 Alkaline Phosphatase 59 U/L (45-117) 04/29/17 07:30 Total Protein 7.1 g/dl (6.4-8.2) D 04/29/17 07:30 Albumin 3.6 g/dl (3.4-5.0) 04/29/17 07:30 Assessment: 04/29/17 10:56 WITHDRAWAL SX Plan: CONTINUE DETOX MONITOR PT
[2017-04-29] MEDS ORDERED: FLU VACCINE QUAD 60 MCG/0.5 ML (MDV 17-18) IM ONE (12:00)
--- NOTE | 2017-04-29 13:09 | EKG ---
Test Reason : Blood Pressure : / mmHG Vent. Rate : 056 BPM Atrial Rate : 056 BPM P-R Int : 132 ms QRS Dur : 098 ms QT Int : 404 ms P-R-T Axes : 037 080 073 degrees QTc Int : 389 ms SINUS BRADYCARDIA OTHERWISE NORMAL ECG WHEN COMPARED WITH ECG OF 15-JAN-2017 01:38, NO SIGNIFICANT CHANGE WAS FOUND Confirmed by DUSTY YIP MD ([id number]) on 04/29/2017 1:09:34 PM Referred By: Confirmed By:DUSTY YIP MD
--- NOTE | 2017-04-29 16:34 | CONSULT ---
[facility] Psychiatric Consult - Data Date of interview: 04/29/17 Admission source: [facility] Identifying data: Pt. is a 36 year old male, single, without kids, and unemployed. This is one of multiple admissions for patient. Pt. admitted to for marijuana and heroin dependence. Substance Abuse History: Following information confirmed by Mr. Donald. - Smoking Cessation. Smoking history: Current every day smoker. Have you smoked in the past 12 months: Yes. Aproximately how many cigarettes per day: 10. - Substance & Tx. History. Hx Alcohol Use: Yes. Hx Substance Use: Yes. Substance Use Type: Heroin, Marijuana, Opiates. Hx Substance Use Treatment: Yes ([facility]). Heroin- Route: Inhalation Frequency: Daily. Amount used: 6 bags Age of first use: 11. Date of Last Use: 04/28/17. Marijuana/Hashish - Route: Smoking Frequency: Daily. Amount used: 3 blounts Age of first use : 9. Date of Last Use: 04/27/17 Medical History: Seizures (2014) Psychiatric History: Pt. reports multiple psychiatric hospitalizations with the most recent hospitalization at [facility] in January of 2017. Pt. reports a diagnosis of depression and bipolar disorder. Pt. reports being prescribed depakote but reports medication non compliance. States he last took depakote in January and refuses to restart the medication. Pt. denies h/o suicide attempt. Pt. denies sucidial and homicidal ideation. Physical/Sexual Abuse/Trauma History: Denies. Mental Status Exam - Mental Status Exam Alert and Oriented to: Time, Place, Person Cognitive Function: Good Patient Appearance: Unkempt Mood: Withdrawn Affect: Mood Congruent Patient Behavior: Fatigued, Cooperative Speech Pattern: Delayed Voice Loudness: Moderately Soft/Quiet Thought Process: Goal Oriented Thought Disorder: Not Present Hallucinations: Denies Suicidal Ideation: Denies Homicidal Ideation: Denies Insight/Judgement: Poor Sleep: Poorly Appetite: Poor Muscle strength/Tone: Normal Gait/Station: Other (Did not observe patient's gait as interview was conducted while patient was laying in bed.) Psychiatric Findings - Problem List ([place]rett 1, 2,3) (1) Opioid dependence with withdrawal Current Visit: Yes Status: Acute (2) Cannabis dependence Current Visit: Yes Status: Chronic (3) Nicotine dependence Current Visit: Yes Status: Chronic Qualifiers: Nicotine product type: cigarettes Substance use status: in withdrawal Qualified Code(s): F17.213 - Nicotine dependence, cigarettes, with withdrawal (4) Depression Current Visit: No Status: Suspected Comment: Self reports. (5) Bipolar disorder Current Visit: No Status: Suspected Comment: Self reports. - Initial Treatment Plan Initial Treatment Plan: Psychoeducation provided. Detoxification in progress. Pt refusing psychotrophic medications. observation.
[2017-04-29 17:49] VITALS: BP 102/64; PULSE 75; TEMP 98.5
--- NOTE | 2017-04-29 20:52 | DS ---
[facility] Detox Discharge Summary Admission Date: 04/28/17 Discharge Date: 04/29/17 - History Present History: Opioid Dependence Pertinent Past History: patient insists to leave the facility refuses to wait face to face with the principal technical writer - Physical Exam Results Vital Signs: Vital Signs Temperature 98.5 F 04/29/17 17:48 Pulse Rate 75 04/29/17 17:48 Respiratory Rate 18 04/29/17 17:48 Blood Pressure 102/64 04/29/17 17:48 O2 Sat by Pulse Oximetry (%) Pertinent Admission Physical Exam Findings: withdrawal sx Vital Signs Temperature 98.5 F 04/29/17 17:48 Pulse Rate 75 04/29/17 17:48 Respiratory Rate 18 04/29/17 17:48 Blood Pressure 102/64 04/29/17 17:48 O2 Sat by Pulse Oximetry (%) Laboratory Last Values WBC 5.3 K/mm3 (4.0-10.0) 04/29/17 07:30 RBC 4.91 M/mm3 (4.00-5.60) 04/29/17 07:30 Hgb 14.4 GM/dL (11.7-16.9) D 04/29/17 07:30 Hct 44.3 % (35.4-49) D 04/29/17 07:30 MCV 90.2 fl (80-96) 04/29/17 07:30 MCH 29.2 pg (25.7-33.7) 04/29/17 07:30 MCHC 32.4 g/dl (32.0-35.9) 04/29/17 07:30 RDW 13.2 % (11.9-15.9) 04/29/17 07:30 Plt Count 180 K/MM3 (134-434) 04/29/17 07:30 MPV 11.5 fl (7.5-11.1) H 04/29/17 07:30 Sodium 138 mmol/L (136-145) 04/29/17 07:30 Potassium 4.2 mmol/L (3.5-5.1) 04/29/17 07:30 Chloride 100 mmol/L (98-107) 04/29/17 07:30 Carbon Dioxide 32 mmol/L (21-32) 04/29/17 07:30 Anion Gap 6 (8-16) L 04/29/17 07:30 BUN 9 mg/dL (7-18) 04/29/17 07:30 Creatinine 0.8 mg/dL (0.7-1.3) D 04/29/17 07:30 Creat Clearance w eGFR > 60 (>60) 04/29/17 07:30 Random Glucose 128 mg/dL (74-106) H D 04/29/17 07:30 Calcium 8.1 mg/dL (8.5-10.1) L 04/29/17 07:30 Total Bilirubin 0.6 mg/dL (0.2-1.0) D 04/29/17 07:30 AST 12 U/L (15-37) L D 04/29/17 07:30 ALT 19 U/L (12-78) 04/29/17 07:30 Alkaline Phosphatase 59 U/L (45-117) 04/29/17 07:30 Total Protein 7.1 g/dl (6.4-8.2) D 04/29/17 07:30 Albumin 3.6 g/dl (3.4-5.0) 04/29/17 07:30 RPR Titer Nonreactive (NONREACTIVE) 04/29/17 07:30 HIV 1&2 Antibody Screen Negative 04/29/17 07:30 HIV P24 Antigen Negative 04/29/17 07:30 lab noted - Treatment Hospital Course: Detox Protocol Followed, Responded well - Medication Discharge Medications: Ambulatory Orders Divalproex [Depakote -] 1,000 mg PO HS 09/16/14 Amox-Tr/K Cl [Augmentin 500-125mg Tablet -] 1 each PO TIDCM #14 tablet 03/01/15 - Diagnosis (1) Opioid dependence with withdrawal Status: Acute - AMA Did Patient Leave Against Medical Advice: Yes
[2017-04-29] MEDS ORDERED: THIAMINE HCL 100 MG TABLET (FP) PO SCH (22:00)
[2017-04-30] MEDS ORDERED: METHADONE HCL 5 MG TABLET (FOR DETOX USE ONLY) PO ONE (10:00)
[2017-05-01] MEDS ORDERED: METHADONE HCL 5 MG TABLET (FOR DETOX USE ONLY) PO ONE (10:00)
[2017-05-02] MEDS ORDERED: METHADONE HCL 10 MG TABLET (FOR DETOX USE ONLY) PO ONE (10:00)
[2017-05-03] MEDS ORDERED: METHADONE HCL 5 MG TABLET (FOR DETOX USE ONLY) PO ONE (06:00)
== END 2017-04-29 20:16 | disposition left against medical advice (07) | DRG 894 ==
LOC: YASAS 21:36 → Y3N 23:13
PROVIDERS: ADMIT Internal Medicine; ATTEND Internal Medicine
PROC: HZ2ZZZZ Detoxification Services for Substance Abuse Treatment (ICD-10-PCS; principal; 2017-04-28)
DX: F19.230 Other psychoactive substance dependence with withdrawal, uncomplicated (principal); F11.23 Opioid dependence with withdrawal; F12.20 Cannabis dependence, uncomplicated; F17.213 Nicotine dependence, cigarettes, with withdrawal; F32.9 Major depressive disorder, single episode, unspecified; F31.9 Bipolar disorder, unspecified; Z86.69 Personal history of other diseases of the nervous system and sense organs
CPT/HCPCS: 36415; 80053; 85027; 86593; 86803; 87389; 93005; 93010

== ENCOUNTER 2017-12-13 00:26 | Inpatient (IN) | payer OTHER ==
[2017-12-13 00:30] VITALS: BMI 22.2
--- NOTE | 2017-12-13 00:36 | HP ---
COWS - Scale Resting Pulse: 1= [place] 81-100 Sweatin=Flushed/Facial Moisture Restless Observation: 5= Unable to Sit Still Pupil Size: 1= Pupils >than Normal Bone or Joint Aches: 4=Acute Joint/Muscle Pain Runny Nose/ Eye Tearin= Runny Nose/Eyes GI Upset > 30mins: 2= Nausea/Diarrhea Tremor Observation: 2= Slight Tremor Visible Yawning Observation: 1= 1-2x During Session Anxiety or Irritability: 4=Extreme Anxiety Goose Flesh Skin: 0=Smooth Skin COWS Score: 24 Admission [facility] Chief Complaint: SEEKING DETOX FOR HEROIN AND WITHDRAWAL SX'S Allergies/Adverse Reactions: Allergies Allergy/AdvReac Type Severity Reaction Status Date / Time No Known Allergies Allergy Verified 01/15/17 01:31 History of Present Illness: 37 Y.O. HOMELESS MALE WITH HX/O POLYSUSBSTANCE DEPENDENCE HERE FOR HEROIN DETOX. CLIENT IS KNOWN TO THIS PROGRAM. LAST HERE A FEW MONTHS AGO. DENIES ANY SIGNIFICANT CLEAN TIME. SELF REFERRED. DENIES HX/ OF OVERDOSE/ AVH/ SI/HI. Exam Limitations: No Limitations - Ebola screening Have you traveled outside of the country in the last 21 days: No Have you had contact with anyone from an Ebola affected area: No Have you been sick,other than usual withdrawal symptoms: No Do you have a fever: No - Review of Systems Constitutional: Chills, Loss of Appetite, Malaise, Night Sweats, Changes in sleep, Unintentional Wgt. Loss EENT: reports: Dental Problems (MISSING TEETH) Respiratory: reports: No Symptoms reported Cardiac: reports: No Symptoms Reported GI: reports: Diarrhea, Poor Appetite : reports: No Symptoms Reported Musculoskeletal: reports: No Symptoms Reported Integumentary: reports: Flushing, Sweating, Other (HEALING WOUND ON HIS BACK) Neuro: reports: No Symptoms reported Endocrine: reports: No Symptoms Reported Hematology: reports: No Symptoms Reported Psychiatric: reports: Anxious Other Systems: Reviewed and Negative Patient History - Patient Medical History Hx Anemia: No Hx Asthma: No Hx Chronic Obstructive Pulmonary Disease (COPD): No Hx Cancer: No Hx Cardiac Disorders: No Hx Congestive Heart Failure: No Hx Hypertension: No Hx Hypercholesterolemia: No Hx Pacemaker: No HX Cerebrovascular Accident: No Hx Seizures: No (DENIES) Hx Dementia: No Hx Diabetes: No Hx Gastrointestinal Disorders: No Hx Liver Disease: No Hx Genitourinary Disorders: No Hx Sexually Transmitted Disorders: No Hx Renal Disease (ESRD): No Hx Thyroid Disease: No Hx Human Immunodeficiency Virus (HIV): No Hx Hepatitis C: No Hx Depression: No Hx Suicide Attempt: No Hx Bipolar Disorder: No (DENIES) Hx Schizophrenia: No - Patient Surgical History Past Surgical History: No Hx Neurologic Surgery: No Hx Cataract Extraction: No Hx Cardiac Surgery: No Hx Lung Surgery: No Hx Breast Surgery: No Hx Breast Biopsy: No Hx Abdominal Surgery: No Hx Appendectomy: No Hx Cholecystectomy: No Hx Genitourinary Surgery: No Hx Section: No Hx Orthopedic Surgery: No Anesthesia Reaction: No - PPD History Previous Implant?: Yes Documented Results: Negative w/proof Implanted On Prior [facility] Admission?: Yes Date: 09/18/14 Results: 0MM PPD to be Administered?: Yes - Smoking Cessation Smoking history: Current every day smoker Have you smoked in the past 12 months: Yes Aproximately how many cigarettes per day: 10 Cigars Per Day: 0 Hx Chewing Tobacco Use: No Initiated information on smoking cessation: Yes 'Breaking Loose' booklet given: 12/13/17 - Substance & Tx. History Hx Alcohol Use: No Hx Substance Use: Yes Substance Use Type: Heroin, Marijuana Hx Substance Use Treatment: Yes ([facility] - Substances Abused HEROIN Route: Inhalation Frequency: Daily Amount used: 5 BAGS Age of first use: 15 Date of Last Use: 12/12/17 THC Route: Smoking Frequency: Daily Amount used: 3 BLUNTS Age of first use: 15 Date of Last Use: 12/12/17 Family Disease History - Family Disease History Family Disease History: Respiratory: Mother (ASTHMA), Other: Father ( MVA) Admission Physical Exam S - Vital Signs Vital Signs: Vital Signs - 24 hr 12/13/17 00:28 Temperature 97.8 F Pulse Rate 90 Respiratory 18 Rate Blood Pressure 108/65 - Physical General Appearance: Yes: Disheveled, Mild Distress, Anxious, Other (UNKEPT) HEENTM: Yes: EOMI, Normocephalic, Normal Voice, MANA, Pharynx Normal, Nasal Congestion, Rhinorrhea Respiratory: Yes: Chest Non-Tender, Lungs Clear, Normal Breath Sounds, No Respiratory Distress, No Accessory Muscle Use Neck: Yes: No masses,lesions,Nodules, Supple, Trachea in good position Breast: Yes: Breast Exam Deferred Cardiology: Yes: Regular Rhythm, Regular Rate, S1, S2 Abdominal: Yes: Normal Bowel Sounds, Non Tender, Soft Genitourinary: Yes: Within Normal Limits Back: Yes: Other (HEALING WOUND. CLIENT UNABLE TO TELL WHAT HAPPENED) Musculoskeletal: Yes: full range of Motion, Gait Steady Extremities: Yes: Normal Range of Motion, Non-Tender, Tremors (FELT) Neurological: Yes: Alert, Motor Strength 5/5 Integumentary: Yes: Warm, Moist, Other (HEALING WOUND WITH SCABBING NOTED TO MID BACK) Lymphatic: Yes: Within Normal Limits - Diagnostic (1) Homeless Current Visit: Yes Status: Chronic (2) Opioid dependence with withdrawal Current Visit: Yes Status: Acute (3) Cannabis dependence Current Visit: Yes Status: Chronic (4) Nicotine dependence Current Visit: Yes Status: Chronic Qualifiers: Nicotine product type: cigarettes Substance use status: in withdrawal Qualified Code(s): F17.213 - Nicotine dependence, cigarettes, with withdrawal Cleared for Admission [facility] - Detox or Rehab [facility] Level of Care: Medically Managed Detox Regimen/Protocol: Methadone Claeared for Rehab Admission: No [facility] Breath Alcohol Content Breath Alcohol Content: 0 Urine Drug Screen - Results Drug Screen Negative: No Urine Drug Screen Results: THC-Marijuana, OPI-Opiates, PCP-Phencyclidine, OXY- Oxycodone
[2017-12-13] MEDS ORDERED: MAGNESIUM HYDROX 2400MG/30ML ORAL SUSPENSION 30 ML CUP PO PRN (00:42)
[2017-12-13] MEDS ORDERED: guaiFENesin/D-METHORPHAN HB 10 ML UNIT-DOSE CUPS PO PRN (00:42)
[2017-12-13] MEDS ORDERED: diazePAM 5 MG TABLET PO PRN (00:42)
[2017-12-13] MEDS ORDERED: LOPERAMIDE HCL 2 MG CAPSULE PO PRN (00:42)
[2017-12-13] MEDS ORDERED: NICOTINE POLACRILEX 2 MG GUM BC PRN (00:42)
[2017-12-13] MEDS ORDERED: MAGNESIUM CITRATE 300 ML BOTTLE PO PRN (00:42)
[2017-12-13] MEDS ORDERED: ACETAMINOPHEN 325 MG TABLET (FP) PO PRN (00:42)
[2017-12-13] MEDS ORDERED: MENTHOL/PHENOL 1 EACH UD MM PRN (00:42)
[2017-12-13] MEDS ORDERED: METHADONE HCL 10 MG TABLET (FOR DETOX USE ONLY) PO ONE ×3 (00:42→23:00)
[2017-12-13] MEDS ORDERED: MAG HYDROX/AL HYDROX/SIMETH 30 ML UNIT-DOSE CUP PO PRN (00:42)
[2017-12-13] MEDS ORDERED: P-EPHED 60MG/TRIPROLIDI 2.5MG TABLET PO PRN (00:42)
[2017-12-13] MEDS ORDERED: IBUPROFEN 400 MG TABLET (FP) PO PRN (00:42)
[2017-12-13] MEDS ORDERED: NICOTINE 14 MG/24 HOURS TOPICAL PATCH TD SCH (10:00)
[2017-12-13] MEDS ORDERED: PRENATAL VITAMINS W/ FOLIC ACID TABLET (FP) PO SCH (10:00)
[2017-12-13 10:26] LABS: HEMATOCRIT 38.8 % (35.4-49); HEMOGLOBIN 13.1 GM/dL (11.7-16.9); MCH 30.3 pg (25.7-33.7); MCHC 33.8 g/dl (32.0-35.9); MEAN CELL VOLUME 89.6 fl (80-96); MEAN PLT VOLUME 11.4 fl (7.5-11.1); PLATELET COUNT 172 K/MM3 (134-434); RBC 4.33 M/mm3 (4.00-5.60); RDW 13.6 % (11.9-15.9)
[2017-12-13 10:33] LABS: ALBUMIN 3.2 g/dl (3.4-5.0); ALK PHOS 57 U/L (45-117); ANION GAP 5 (8-16); BILIRUBIN,TOTAL 0.2 mg/dL (0.2-1.0); BLOOD UREA NITROGEN 16 mg/dL (7-18); CALCIUM 8.9 mg/dL (8.5-10.1); CHLORIDE 106 mmol/L (98-107); CO2 32 mmol/L (21-32); CREATININE 0.8 mg/dL (0.7-1.3); GLUCOSE,RANDOM 91 mg/dL (74-106); POTASSIUM 4.1 mmol/L (3.5-5.1); SGOT/AST 8 U/L (15-37); SGPT/ALT 13 U/L (12-78); SODIUM 143 mmol/L (136-145); TOT PROT 6.3 g/dl (6.4-8.2)
--- NOTE | 2017-12-13 12:34 | PN ---
[facility] COWS - Scale Resting Pulse: 0= [place] 80 or Below Sweatin= Chills/Flushing Restless Observation: 3= Extraneous Movement Pupil Size: 2= Moderately Dilated Bone or Joint Aches: 1= Mild Discomfort Runny Nose/ Eye Tearin= Nasal Congestion GI Upset > 30mins: 1= Stomach Cramp Tremor Observation of Outstretched Hands: 2= Slight Tremor Visible Yawning Observation: 1= 1-2x During Session Anxiety or Irritability: 2=Irritable/Anxious Goose Flesh Skin: 0=Smooth Skin COWS Score: 14 BHS Progress Note (SOAP) Subjective: PT SEEN IN BED. VERY SLEEPY AND TIRED. AROUSABLE AND WANTS TO BE LEFT ALONE TO SLEEP. IN NO ACUTE DISTRESS. Objective: 12/13/17 12:33 Vital Signs 12/13/17 12/13/17 06:34 09:13 Temperature 97 F L 98.1 F Pulse Rate 51 L 68 Respiratory 18 18 Rate Blood Pressure 99/65 101/71 Laboratory Tests 12/13/17 12/13/17 12/13/17 07:00 07:00 07:00 WBC 6.0 RBC 4.33 Hgb 13.1 Hct 38.8 MCV 89.6 MCH 30.3 MCHC 33.8 RDW 13.6 Plt Count 172 MPV 11.4 H Sodium 143 Potassium 4.1 Chloride 106 Carbon Dioxide 32 Anion Gap 5 L BUN 16 Creatinine 0.8 Creat Clearance w eGFR > 60 Random Glucose 91 D Calcium 8.9 Total Bilirubin 0.2 AST 8 L D ALT 13 D Alkaline Phosphatase 57 Total Protein 6.3 L Albumin 3.2 L RPR Titer Nonreactive UA PENDING Assessment: 12/13/17 12:33 WITHDRAWAL SX Plan: CONTINUE DETOX INCREASE PO FLUIDS.
[2017-12-13 13:14] VITALS: BP 109/67; PULSE 56; TEMP 98.9
--- NOTE | 2017-12-13 14:28 | EKG ---
Test Reason : Blood Pressure : / mmHG Vent. Rate : 052 BPM Atrial Rate : 052 BPM P-R Int : 132 ms QRS Dur : 092 ms QT Int : 428 ms P-R-T Axes : 043 067 065 degrees QTc Int : 398 ms SINUS BRADYCARDIA OTHERWISE NORMAL ECG WHEN COMPARED WITH ECG OF 29-APR-2017 01:17, NO SIGNIFICANT CHANGE WAS FOUND Confirmed by HAWA LAWRENCE MD ([id number]) on 12/13/2017 2:28:02 PM Referred By: Confirmed By:HAWA LAWRENCE MD
--- NOTE | 2017-12-13 17:08 | PN ---
[facility] Progress Note Note: NOTIFIED BY RN THAT PATIENT REQUESTED TO SIGN OUT AMA. PATIENT STATED HE WANTED TO LEAVE NOW AND DID NOT WANT TO WAIT TO SPEAK TO MEDICAL PROVIDER. PATIENT SEEN WHILE WALKING TO SECURITY WITH M.A. PATIENT DENIES SI/HI. MEDICALLY STABLE. REFUSED TO STAY IN DETOX. ENCOURAGED TO ATTEND GROUP MEETINGS TO PREVENT RELAPSE. RISK FACTORS REVIEWED AND PATIENT VERBALIZED UNDERSTANDING.
[2017-12-13] MEDS ORDERED: THIAMINE HCL 100 MG TABLET (FP) PO SCH (22:00)
[2017-12-13] MEDS ORDERED: MELATONIN 5 MG TABLETS PO PRN (22:00)
[2017-12-14] MEDS ORDERED: METHADONE HCL 10 MG TABLET (FOR DETOX USE ONLY) PO ONE (10:00)
[2017-12-15] MEDS ORDERED: METHADONE HCL 5 MG TABLET (FOR DETOX USE ONLY) PO ONE (10:00)
[2017-12-16] MEDS ORDERED: METHADONE HCL 5 MG TABLET (FOR DETOX USE ONLY) PO ONE (10:00)
[2017-12-17] MEDS ORDERED: METHADONE HCL 10 MG TABLET (FOR DETOX USE ONLY) PO ONE (10:00)
[2017-12-18] MEDS ORDERED: METHADONE HCL 5 MG TABLET (FOR DETOX USE ONLY) PO ONE (06:00)
== END 2017-12-13 17:00 | disposition left against medical advice (07) | DRG 770 ==
LOC: YASAS 00:26 → Y3N 00:37
PROVIDERS: ADMIT Surgery; ATTEND Surgery
PROC: HZ2ZZZZ Detoxification Services for Substance Abuse Treatment (ICD-10-PCS; principal; 2017-12-13)
DX: F11.23 Opioid dependence with withdrawal (principal); F12.20 Cannabis dependence, uncomplicated; F17.213 Nicotine dependence, cigarettes, with withdrawal; Z59.0 Homelessness
CPT/HCPCS: 36415; 80053; 85027; 86593; 93005; 93010

== ENCOUNTER 2018-01-04 14:50 | Inpatient (IN) | payer OTHER ==
--- NOTE | 2018-01-04 18:49 | HP ---
COWS - Scale Resting Pulse: 1= [place] 81-100 Sweatin= Chills/Flushing Restless Observation: 1= Difficult to Sit Still Pupil Size: 1= Pupils >than Normal Bone or Joint Aches: 2= Severe Diffuse Aches Runny Nose/ Eye Tearin= Runny Nose/Eyes GI Upset > 30mins: 2= Nausea/Diarrhea Tremor Observation: 1= Tremor [place], Not Seen Yawning Observation: 1= 1-2x During Session Anxiety or Irritability: 1=Feels Anxious/Irritable Goose Flesh Skin: 0=Smooth Skin COWS Score: 13 Admission [facility] - [facility] Chief Complaint: Heroin withdrawal symptoms. Allergies/Adverse Reactions: Allergies Allergy/AdvReac Type Severity Reaction Status Date / Time No Known Allergies Allergy Verified 01/04/18 18:28 History of Present Illness: Patient presents with Heroin withdrawal symptoms. Patient started sniffing Heroin at age 13. Sniffs 14 bags daily. Last time he sniffed was 5 this morning. Denies history of overdose and seizures. Also smokes marijuana, 2 bags daily, last time he used was today. Denies significant PMH. No reports of SI/HI and suicide attempts. Patients last attempt at detox 12/13/17. Patient signed out AMA. States " I won't leave this time. I want help". Exam Limitations: No Limitations - Ebola screening Have you traveled outside of the country in the last 21 days: No Have you had contact with anyone from an Ebola affected area: No Have you been sick,other than usual withdrawal symptoms: No Do you have a fever: No - Review of Systems Constitutional: Chills, Night Sweats, Changes in sleep, Unintentional Wgt. Loss EENT: reports: Tearing, Nose Congestion Respiratory: denies: Cough, Shortness of Breath Cardiac: denies: Chest Pain, Edema, Lightheadedness GI: reports: Diarrhea, Nausea, Poor Appetite, Poor Fluid Intake : denies: Frequency, Flank Pain Integumentary: denies: Change in Color, Rash Neuro: reports: Tremors. denies: Headache, Numbness, Seizure, Unsteady Gait Endocrine: reports: Unexplained Weight Loss Hematology: reports: No Symptoms Reported Psychiatric: reports: Orientated x3, Anxious, Depressed Patient History - Patient Medical History Hx Anemia: No Hx Asthma: No Hx Chronic Obstructive Pulmonary Disease (COPD): No Hx Cancer: No Hx Cardiac Disorders: No Hx Congestive Heart Failure: No Hx Hypertension: No Hx Hypercholesterolemia: No Hx Pacemaker: No HX Cerebrovascular Accident: No Hx Seizures: No (DENIES) Hx Dementia: No Hx Diabetes: No Hx Gastrointestinal Disorders: No Hx Liver Disease: No Hx Genitourinary Disorders: No Hx Sexually Transmitted Disorders: No Hx Renal Disease (ESRD): No Hx Thyroid Disease: No Hx Human Immunodeficiency Virus (HIV): No Hx Hepatitis C: No Hx Depression: No Hx Suicide Attempt: No Hx Bipolar Disorder: No (DENIES) Hx Schizophrenia: No - Patient Surgical History Past Surgical History: No Hx Neurologic Surgery: No Hx Cataract Extraction: No Hx Cardiac Surgery: No Hx Lung Surgery: No Hx Breast Surgery: No Hx Breast Biopsy: No Hx Abdominal Surgery: No Hx Appendectomy: No Hx Cholecystectomy: No Hx Genitourinary Surgery: No Hx Orthopedic Surgery: No Anesthesia Reaction: No - PPD History Previous Implant?: Yes Date: 12/15/17 Results: 0MM PPD to be Administered?: No - Smoking Cessation Smoking history: Current every day smoker Have you smoked in the past 12 months: Yes Aproximately how many cigarettes per day: 10 Cigars Per Day: 0 Hx Chewing Tobacco Use: No Initiated information on smoking cessation: Yes 'Breaking Loose' booklet given: 01/04/18 - Substance & Tx. History Hx Alcohol Use: No Hx Substance Use: Yes Substance Use Type: Heroin, Marijuana Hx Substance Use Treatment: Yes - Substances Abused Heroin Route: Inhalation Frequency: Daily Amount used: 5-6 bags Age of first use: 13 Date of Last Use: 01/04/18 Marijuana/Hashish Route: Smoking Frequency: Daily Amount used: 5 blunt Age of first use: 12 Date of Last Use: 01/03/18 Family Disease History - Family Disease History Family Disease History: Respiratory: Mother (ASTHMA), Other: Father ( MVA) Admission Physical Exam BHS - Vital Signs Vital Signs: Vital Signs - 24 hr 01/04/18 17:22 Temperature 97.6 F Pulse Rate 83 Respiratory 19 Rate Blood Pressure 132/87 - Physical General Appearance: Yes: Disheveled, Thin, Tremorous, Anxious HEENTM: Yes: EOMI, Hearing grossly Normal, Normal ENT Inspection, Normocephalic , Normal Voice, MANA, Pharynx Normal Respiratory: Yes: Chest Non-Tender, Normal Breath Sounds, No Respiratory Distress, No Accessory Muscle Use, Wheezing Neck: Yes: No masses,lesions,Nodules, Supple Breast: Yes: Breast Exam Deferred Cardiology: Yes: Regular Rhythm, Regular Rate, S1, S2 Abdominal: Yes: Normal Bowel Sounds, Non Tender, Soft Genitourinary: Yes: Within Normal Limits Back: Yes: Normal Inspection, Muscle Spasm Musculoskeletal: Yes: full range of Motion, Gait Steady, Back pain, Muscle Pain Extremities: Yes: Normal Capillary Refill, Normal Inspection, Normal Range of Motion, Non-Tender, Tremors 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, Fully Oriented, Alert, Motor Strength 5/5, Normal Response, Depressed Affect Integumentary: Yes: Normal Color, Warm, Moist Lymphatic: Yes: Within Normal Limits - Diagnostic (1) Depressed affect Current Visit: Yes Status: Suspected (2) Cannabis dependence Current Visit: Yes Status: Chronic (3) Nicotine dependence Current Visit: Yes Status: Acute Qualifiers: Nicotine product type: cigarettes Substance use status: in withdrawal Qualified Code(s): F17.213 - Nicotine dependence, cigarettes, with withdrawal (4) Opioid dependence with withdrawal Current Visit: Yes Status: Acute (5) Anxiety disorder Current Visit: Yes Status: Suspected Qualifiers: Anxiety disorder type: unspecified anxiety disorder Qualified Code(s): F41.9 - Anxiety disorder, unspecified Cleared for Admission [facility] - Detox or Rehab [facility] Level of Care: Medically Managed Detox Regimen/Protocol: Methadone [facility] Breath Alcohol Content Breath Alcohol Content: 0 Urine Drug Screen - Results Urine Drug Screen Results: THC-Marijuana, OPI-Opiates
[2018-01-04] MEDS ORDERED: NICOTINE POLACRILEX 2 MG GUM BC PRN (18:54)
[2018-01-04] MEDS ORDERED: MENTHOL/PHENOL 1 EACH UD MM PRN (18:54)
[2018-01-04] MEDS ORDERED: P-EPHED 60MG/TRIPROLIDI 2.5MG TABLET PO PRN (18:54)
[2018-01-04] MEDS ORDERED: hydrOXYzine PAMOATE 50 MG CAPSULE (FP) PO PRN (18:54)
[2018-01-04] MEDS ORDERED: IBUPROFEN 400 MG TABLET (FP) PO PRN (18:54)
[2018-01-04] MEDS ORDERED: MAGNESIUM HYDROX 2400MG/30ML ORAL SUSPENSION 30 ML CUP PO PRN (18:54)
[2018-01-04] MEDS ORDERED: ACETAMINOPHEN 325 MG TABLET (FP) PO PRN (18:54)
[2018-01-04] MEDS ORDERED: LOPERAMIDE HCL 2 MG CAPSULE PO PRN (18:54)
[2018-01-04] MEDS ORDERED: MAG HYDROX/AL HYDROX/SIMETH 30 ML UNIT-DOSE CUP PO PRN (18:54)
[2018-01-04] MEDS ORDERED: MAGNESIUM CITRATE 300 ML BOTTLE PO PRN (18:54)
[2018-01-04] MEDS ORDERED: guaiFENesin/D-METHORPHAN HB 10 ML UNIT-DOSE CUPS PO PRN (18:54)
[2018-01-04] MEDS ORDERED: METHADONE HCL 10 MG TABLET (FOR DETOX USE ONLY) PO ONE ×2 (18:58→23:00)
[2018-01-04] MEDS: diazePAM 5 MG TABLET PO PRN (21:12)
[2018-01-04] MEDS ORDERED: MELATONIN 5 MG TABLETS PO PRN (22:00)
[2018-01-04] MEDS: THIAMINE HCL 100 MG TABLET (FP) PO SCH (22:31)
[2018-01-05 02:00] LABS: URINE APPEARANCE TURBID; URINE BILIRUBIN NEGATIVE (<2.0 mg/dL); URINE COLOR AMBER; URINE GLUCOSE (UA) NEGATIVE (NEGATIVE); URINE KETONE NEGATIVE (NEGATIVE); URINE LEUK ESTERASE NEGATIVE (NEGATIVE); URINE NITRITE NEGATIVE (NEGATIVE); URINE UROBILINOGEN NEGATIVE mg/dL (0.2-1.0)
[2018-01-05 02:05] LABS: URINE PROTEIN 2+ (NEGATIVE)
[2018-01-05 02:11] LABS: URINE BACTERIA RARE /hpf (NONE SEEN); URINE MUCUS RARE
[2018-01-05] MEDS: diazePAM 5 MG TABLET PO PRN ×3 (06:26→22:33)
--- NOTE | 2018-01-05 09:01 | CONSULT ---
[facility] Psychiatric Consult - Data Date of interview: 01/05/18 Admission source: [facility] Identifying data: This is a 37 years old male, single, unemployed, homeless, on PA, with no psychiatric hospitalization history, with long history of Heroin, Cannabis and Nicotine dependence, reporting withdrawal symptoms and seeking detox. Substance Abuse History: Smoking history: Current every day smoker. Have you smoked in the past 12 months: Yes. Aproximately how many cigarettes per day: 10. Cigars Per Day: 0. Hx Chewing Tobacco Use: No. Initiated information on smoking cessation: Yes. 'Breaking Loose' booklet given: 01/04/18. - Substance & Tx. History. Hx Alcohol Use: No. Hx Substance Use: Yes. Substance Use Type : Heroin, Marijuana. Hx Substance Use Treatment: Yes. - Substances Abused. * * Heroin. Route: Inhalation. Frequency: Daily. Amount used: 5-6 bags. Age of first use: 13. Date of Last Use: 01/04/18. Marijuana/Hashish. Route: Smoking. Frequency: Daily. Amount used: 5 blunt. Age of first use: 12. Date of Last Use: 01/03/18 Medical History: Seizure history, Syncope history Psychiatric History: Patient reports history of depession and anxiety, as per computer history of Bipolar Disorder, reports no psychiatric hospitalization history, denies suicidal, homicidal history as well. Physical/Sexual Abuse/Trauma History: Denies Additional Comment: Observation. Detox Unit Care Protocol Mental Status Exam - Mental Status Exam Alert and Oriented to: Person Cognitive Function: Fair Patient Appearance: Unkempt Mood: Sad Affect: Flat Patient Behavior: Sedated Speech Pattern: Delayed Voice Loudness: Mildly Soft/Quiet Thought Process: Circumstantial Thought Disorder: Being Controlled Hallucinations: Denies Suicidal Ideation: Denies Homicidal Ideation: Denies Insight/Judgement: Fair Sleep: Difficulty falling asleep Appetite: Weight loss Muscle strength/Tone: Mild Hypotonicity Gait/Station: Shuffling Additional Comments: Observation. Detox Unit Care Protocol Psychiatric Findings - Problem List ([place] 1, 2,3) (1) Nicotine dependence Current Visit: Yes Status: Acute Qualifiers: Nicotine product type: cigarettes Substance use status: in withdrawal Qualified Code(s): F17.213 - Nicotine dependence, cigarettes, with withdrawal (2) Opioid dependence with withdrawal Current Visit: Yes Status: Acute (3) Cannabis dependence Current Visit: Yes Status: Chronic (4) Anxiety disorder Current Visit: Yes Status: Suspected Qualifiers: Anxiety disorder type: unspecified anxiety disorder Qualified Code(s): F41.9 - Anxiety disorder, unspecified (5) Opioid-induced mood disorder Current Visit: Yes Status: Acute (6) Syncope Current Visit: No Status: Active (7) Seizure Current Visit: No Status: Suspected - Initial Treatment Plan Initial Treatment Plan: Observation. Detox Unit Care Protocol
[2018-01-05] MEDS: TRIMETHOBENZAMIDE HCL 200MG/2ML INJ IM PRN (09:42)
--- NOTE | 2018-01-05 09:58 | PN ---
BHS COWS - Scale Resting Pulse: 0= [place] 80 or Below Sweatin=Flushed/Facial Moisture Restless Observation: 1= Difficult to Sit Still Pupil Size: 1= Pupils >than Normal Bone or Joint Aches: 2= Severe Diffuse Aches Runny Nose/ Eye Tearin= Nasal Congestion GI Upset > 30mins: 2= Nausea/Diarrhea Tremor Observation of Outstretched Hands: 2= Slight Tremor Visible Yawning Observation: 0= None Anxiety or Irritability: 2=Irritable/Anxious Goose Flesh Skin: 0=Smooth Skin COWS Score: 13 BHS Progress Note (SOAP) Subjective: interrupted sleep, sweats , nausea, vomiting , feeling sick Objective: 01/05/18 09:54 Vital Signs Temperature 99.0 F 01/05/18 06:12 Pulse Rate 48 L 01/05/18 06:12 Respiratory Rate 18 01/05/18 06:12 Blood Pressure 134/76 01/05/18 06:12 O2 Sat by Pulse Oximetry (%) Laboratory Tests 01/05/18 00:00 Urine Color Trish Urine Appearance Turbid Urine pH 9.0 H D Ur Specific [place] 1.020 Urine Protein 2+ H Urine Glucose (UA) Negative Urine Ketones Negative Urine Blood Negative Urine Nitrite Negative Urine Bilirubin Negative Urine Urobilinogen Negative Ur Leukocyte Esterase Negative Urine WBC (Auto) None Urine RBC (Auto) 5 Urine Bacteria Rare Urine Mucus Rare pending labs 01/05/18 09:55 pt aox3 appearing ill ,nauseous ambulating but going to bed. Assessment: 01/05/18 09:56 withdrawal sx's Plan: cont. detox increase fluids tigan 200mg im q 8 f/up pending labs ekg pending
[2018-01-05] MEDS ORDERED: METHADONE HCL 10 MG TABLET (FOR DETOX USE ONLY) PO ONE (10:00)
[2018-01-05] MEDS: PRENATAL VITAMINS W/ FOLIC ACID TABLET (FP) PO SCH (10:01)
[2018-01-05] MEDS: NICOTINE 21 MG/24 HOURS TOPICAL PATCH TD SCH (10:02)
[2018-01-05 10:24] LABS: HEMATOCRIT 39.6 % (35.4-49); HEMOGLOBIN 13.6 GM/dL (11.7-16.9); MCH 30.1 pg (25.7-33.7); MCHC 34.4 g/dl (32.0-35.9); MEAN CELL VOLUME 87.5 fl (80-96); MEAN PLT VOLUME 11.6 fl (7.5-11.1); PLATELET COUNT 158 K/MM3 (134-434); RBC 4.53 M/mm3 (4.00-5.60); WHITE BLOOD COUNT 9.6 K/mm3 (4.0-10.0)
[2018-01-05 10:42] LABS: ALBUMIN 3.8 g/dl (3.4-5.0); ANION GAP 6 MMOL/L (8-16); BLOOD UREA NITROGEN 12 mg/dL (7-18); CALCIUM 9.2 mg/dL (8.5-10.1); CHLORIDE 96 mmol/L (98-107); CO2 34 mmol/L (21-32); GLUCOSE,RANDOM 115 mg/dL (74-106); POTASSIUM 3.6 mmol/L (3.5-5.1); SGOT/AST 19 U/L (15-37); SGPT/ALT 17 U/L (12-78); SODIUM 136 mmol/L (136-145)
[2018-01-05 10:44] LABS: ALK PHOS 59 U/L (45-117); BILIRUBIN,TOTAL 0.4 mg/dL (0.2-1.0); CREATININE 0.8 mg/dL (0.7-1.3); TOT PROT 7.5 g/dl (6.4-8.2)
--- NOTE | 2018-01-05 12:30 | EKG ---
Test Reason : Blood Pressure : / mmHG Vent. Rate : 044 BPM Atrial Rate : 044 BPM P-R Int : 000 ms QRS Dur : 094 ms QT Int : 488 ms P-R-T Axes : 000 077 082 degrees QTc Int : 417 ms MARKED SINUS BRADYCARDIA INCOMPLETE RIGHT BUNDLE BRANCH BLOCK NONSPECIFIC ST ABNORMALITY ABNORMAL ECG Confirmed by SHEA DOSHI, POONAM ([id number]) on 01/05/2018 12:29:44 PM Referred By: Confirmed By:POONAM VALDIVIA MD
--- NOTE | 2018-01-05 15:27 | EKG ---
Test Reason : Blood Pressure : / mmHG Vent. Rate : 055 BPM Atrial Rate : 055 BPM P-R Int : 130 ms QRS Dur : 096 ms QT Int : 442 ms P-R-T Axes : 066 086 088 degrees QTc Int : 422 ms SINUS BRADYCARDIA MINIMAL VOLTAGE CRITERIA FOR LVH, MAY BE NORMAL VARIANT BORDERLINE ECG WHEN COMPARED WITH ECG OF 04-JAN-2018 20:57, SINUS RHYTHM HAS REPLACED JUNCTIONAL RHYTHM Confirmed by SHEA DOSHI, POONAM ([id number]) on 01/05/2018 3:26:32 PM Referred By: Confirmed By:POONAM VALDIVIA MD
[2018-01-05] MEDS: THIAMINE HCL 100 MG TABLET (FP) PO SCH (22:35)
[2018-01-06] MEDS: TRIMETHOBENZAMIDE HCL 200MG/2ML INJ IM PRN (09:40)
[2018-01-06] MEDS ORDERED: METHADONE HCL 5 MG TABLET (FOR DETOX USE ONLY) PO ONE (10:00)
[2018-01-06] MEDS: diazePAM 5 MG TABLET PO PRN ×2 (10:56→22:55)
[2018-01-06] MEDS: NICOTINE 21 MG/24 HOURS TOPICAL PATCH TD SCH (10:57)
[2018-01-06] MEDS: PRENATAL VITAMINS W/ FOLIC ACID TABLET (FP) PO SCH (10:58)
--- NOTE | 2018-01-06 20:04 | PN ---
[facility] CIWA - CIWA Score Nausea/Vomitin-Mild Nausea/No Vomiting Muscle Tremors: 4-Moderate,w/Arms Extend Anxiety: 4-Mod. Anxious/Guarded Agitation: 4-Moderately Restless Paroxysmal Sweats: No Perspiration Orientation: 1-Uncertain about Date Tacttile Disturbances: 0-None Auditory Disturbances: 0-None Visual Disturbances: 0-None Headache: 0-None Present CIWA-Ar Total Score: 14 S Progress Note (SOAP) Subjective: Patient c/o nausea but denies diarrhea or vomiting. Patient is c/o anxiety but denies other problems. Patient stated he wanted to leave. Objective: Patient seen putting fingers in mouth and inducing vomiting earlier. Patient knows year and location but unsure about month and date. Abd is S/NT/BS+. Tremors of hands. Restless - unable to sit still. Vital Signs 01/06/18 01/06/18 13:35 17:26 Temperature 97.7 F 97.9 F Pulse Rate 53 L 58 L Respiratory 16 19 Rate Blood Pressure 110/74 131/68 Laboratory Last Values WBC 9.6 K/mm3 (4.0-10.0) 01/05/18 07:30 RBC 4.53 M/mm3 (4.00-5.60) 01/05/18 07:30 Hgb 13.6 GM/dL (11.7-16.9) 01/05/18 07:30 Hct 39.6 % (35.4-49) 01/05/18 07:30 MCV 87.5 fl (80-96) 01/05/18 07:30 MCH 30.1 pg (25.7-33.7) 01/05/18 07:30 MCHC 34.4 g/dl (32.0-35.9) 01/05/18 07:30 RDW 13.0 % (11.9-15.9) 01/05/18 07:30 Plt Count 158 K/MM3 (134-434) 01/05/18 07:30 MPV 11.6 fl (7.5-11.1) H 01/05/18 07:30 Sodium 136 mmol/L (136-145) 01/05/18 07:30 Potassium 3.6 mmol/L (3.5-5.1) 01/05/18 07:30 Chloride 96 mmol/L (98-107) L 01/05/18 07:30 Carbon Dioxide 34 mmol/L (21-32) H 01/05/18 07:30 Anion Gap 6 MMOL/L (8-16) L 01/05/18 07:30 BUN 12 mg/dL (7-18) 01/05/18 07:30 Creatinine 0.8 mg/dL (0.7-1.3) 01/05/18 07:30 Creat Clearance w eGFR > 60 (>60) 01/05/18 07:30 Random Glucose 115 mg/dL (74-106) H D 01/05/18 07:30 Calcium 9.2 mg/dL (8.5-10.1) 01/05/18 07:30 Total Bilirubin 0.4 mg/dL (0.2-1.0) 01/05/18 07:30 AST 19 U/L (15-37) D 01/05/18 07:30 ALT 17 U/L (12-78) D 01/05/18 07:30 Alkaline Phosphatase 59 U/L (45-117) 01/05/18 07:30 Total Protein 7.5 g/dl (6.4-8.2) 01/05/18 07:30 Albumin 3.8 g/dl (3.4-5.0) 01/05/18 07:30 Urine Color Trish 01/05/18 00:00 Urine Appearance Turbid 01/05/18 00:00 Urine pH 9.0 (5.0-8.0) H D 01/05/18 00:00 Ur Specific [place] 1.020 (1.001-1.035) 01/05/18 00:00 Urine Protein 2+ (NEGATIVE) H 01/05/18 00:00 Urine Glucose (UA) Negative (NEGATIVE) 01/05/18 00:00 Urine Ketones Negative (NEGATIVE) 01/05/18 00:00 Urine Blood Negative (NEGATIVE) 01/05/18 00:00 Urine Nitrite Negative (NEGATIVE) 01/05/18 00:00 Urine Bilirubin Negative (<2.0 mg/dL) 01/05/18 00:00 Urine Urobilinogen Negative mg/dL (0.2-1.0) 01/05/18 00:00 Ur Leukocyte Esterase Negative (NEGATIVE) 01/05/18 00:00 Urine WBC (Auto) None /hpf (3-5) 01/05/18 00:00 Urine RBC (Auto) 5 /hpf (0-3) 01/05/18 00:00 Urine Bacteria Rare /hpf (NONE SEEN) 01/05/18 00:00 Urine Mucus Rare 01/05/18 00:00 RPR Titer Nonreactive (NONREACTIVE) 01/05/18 07:30 Labs reviewed. Assessment: Alcohol withdrawal symptoms. BMI 20. Plan: Patient will remain in detox. Ensure ordered. Continue detox.
[2018-01-06] MEDS: THIAMINE HCL 100 MG TABLET (FP) PO SCH (22:55)
[2018-01-07 09:05] VITALS: BP 97/59; PULSE 56; TEMP 97.8
[2018-01-07] MEDS ORDERED: METHADONE HCL 5 MG TABLET (FOR DETOX USE ONLY) PO ONE (10:00)
[2018-01-07] MEDS: PRENATAL VITAMINS W/ FOLIC ACID TABLET (FP) PO SCH (12:11)
[2018-01-07] MEDS: diazePAM 5 MG TABLET PO PRN (12:11)
[2018-01-07] MEDS: NICOTINE 21 MG/24 HOURS TOPICAL PATCH TD SCH (12:11)
[2018-01-08] MEDS ORDERED: METHADONE HCL 10 MG TABLET (FOR DETOX USE ONLY) PO ONE (10:00)
[2018-01-09] MEDS ORDERED: METHADONE HCL 5 MG TABLET (FOR DETOX USE ONLY) PO ONE (06:00)
== END 2018-01-07 15:15 | disposition left against medical advice (07) | DRG 894 ==
LOC: YASAS 14:50 → Y6N 19:04
PROC: HZ2ZZZZ Detoxification Services for Substance Abuse Treatment (ICD-10-PCS; principal; 2018-01-04)
DX: F11.23 Opioid dependence with withdrawal (principal); F12.20 Cannabis dependence, uncomplicated; F17.210 Nicotine dependence, cigarettes, uncomplicated; F41.9 Anxiety disorder, unspecified; F11.24 Opioid dependence with opioid-induced mood disorder; F32.9 Major depressive disorder, single episode, unspecified; R45.89 Other symptoms and signs involving emotional state; Z59.0 Homelessness
CPT/HCPCS: 36415; 80053; 81003; 81015; 85027; 86593; 93005; 93010

== ENCOUNTER 2018-04-06 10:33 | Inpatient (IN) | payer OTHER ==
[2018-04-06 12:09] VITALS: BMI 20.7
--- NOTE | 2018-04-06 12:28 | HP ---
COWS - Scale Resting Pulse: 1= [place] 81-100 Sweatin=Flushed/Facial Moisture Restless Observation: 3= Extraneous Movement Pupil Size: 1= Pupils >than Normal Bone or Joint Aches: 1= Mild Discomfort Runny Nose/ Eye Tearin= None GI Upset > 30mins: 2= Nausea/Diarrhea Tremor Observation: 0= None Yawning Observation: 0= None Anxiety or Irritability: 2=Irritable/Anxious Goose Flesh Skin: 0=Smooth Skin COWS Score: 12 CIWA Score - Admission Criteria [facility] Guidelines: Admission for Medically Managed Detox: Requires at least one of the followin. CIWA greater than 12 2. Seizures within the past 24 hours 3. Delirium tremens within the past 24 hours 4. Hallucinations within the past 24 hours 5. Acute intervention needed for co occurring medical disorder 6. Acute intervention needed for co occurring psychiatric disorder 7. Severe withdrawal that cannot be handled at a lower level of care (continued vomiting, continued diarrhea, abnormal vital signs) requiring intravenous medication and/or fluids 8. Admission ROS [facility] Chief Complaint: Ineed to stop using heroin this year. Allergies/Adverse Reactions: Allergies Allergy/AdvReac Type Severity Reaction Status Date / Time No Known Allergies Allergy Verified 04/06/18 11:55 History of Present Illness: Male pt with blonstanding h/o heroin dep and cannabis dep seeking detox, Exam Limitations: No Limitations - Ebola screening Have you traveled outside of the country in the last 21 days: No Have you had contact with anyone from an Ebola affected area: No Have you been sick,other than usual withdrawal symptoms: No Do you have a fever: Yes - Review of Systems Constitutional: Weight Stable (30 over 6 months) EENT: reports: Dental Problems (missing teeth) Respiratory: reports: No Symptoms reported Cardiac: reports: No Symptoms Reported GI: reports: Nausea, Vomiting, Abdominal cramping : reports: No Symptoms Reported Musculoskeletal: reports: Muscle Pain Integumentary: reports: No Symptoms Reported Neuro: reports: No Symptoms reported Endocrine: reports: No Symptoms Reported Hematology: reports: No Symptoms Reported Psychiatric: reports: Agitated, Anxious, Depressed Other Systems: Reviewed and Negative Patient History - Patient Medical History Hx Anemia: No Hx Asthma: No Hx Chronic Obstructive Pulmonary Disease (COPD): No Hx Cancer: No Hx Cardiac Disorders: No Hx Congestive Heart Failure: No Hx Hypertension: No Hx Hypercholesterolemia: No Hx Pacemaker: No HX Cerebrovascular Accident: No Hx Seizures: No (DENIES) Hx Dementia: No Hx Diabetes: No Hx Gastrointestinal Disorders: No Hx Liver Disease: No Hx Genitourinary Disorders: No Hx Sexually Transmitted Disorders: No Hx Renal Disease (ESRD): No Hx Thyroid Disease: No Hx Human Immunodeficiency Virus (HIV): No (last 06/20 negative) Hx Hepatitis C: No Hx Depression: No Hx Suicide Attempt: No Hx Bipolar Disorder: Yes (no meds ) Hx Schizophrenia: No - Patient Surgical History Past Surgical History: No Hx Neurologic Surgery: No Hx Cataract Extraction: No Hx Cardiac Surgery: No Hx Lung Surgery: No Hx Breast Surgery: No Hx Breast Biopsy: No Hx Abdominal Surgery: No Hx Appendectomy: No Hx Cholecystectomy: No Hx Genitourinary Surgery: No Hx Section: No Hx Orthopedic Surgery: No Anesthesia Reaction: No - PPD History Date: 12/15/17 Results: 0MM PPD to be Administered?: No - Reproductive History Patient is a Female of Child Bearing Age (11 -55 yrs old): No - Smoking Cessation Smoking history: Current every day smoker Have you smoked in the past 12 months: Yes Aproximately how many cigarettes per day: 20 Cigars Per Day: 0 Hx Chewing Tobacco Use: No Initiated information on smoking cessation: Yes 'Breaking Loose' booklet given: 04/06/18 - Substance & Tx. History Hx Alcohol Use: No Hx Substance Use: Yes Substance Use Type: Heroin, Marijuana Hx Substance Use Treatment: Yes ([facility]) - Substances Abused Heroin Route: Inhalation Frequency: Daily Amount used: 10 bags Age of first use: 10 Date of Last Use: 04/05/18 Marijuana/Hashish Route: Smoking Frequency: Daily Amount used: 20 bunch Age of first use: 15 Date of Last Use: 04/05/18 Family Disease History - Family Disease History Family Disease History: Respiratory: Mother (ASTHMA), Other: Father ( MVA) Admission Physical Exam BHS - Vital Signs Vital Signs: Vital Signs - 24 hr 04/06/18 11:58 Temperature 96.5 F L Pulse Rate 83 Respiratory 18 Rate Blood Pressure 112/62 37 y/o m pt aox3 in nad ambulating , cooperating with exam but restless. - Physical General Appearance: Yes: Disheveled, Thin, Irritable, Anxious HEENTM: Yes: EOMI, Hearing grossly Normal, Normal Voice, MANA, Other (missing teeth) Respiratory: Yes: Chest Non-Tender, Lungs Clear, Normal Breath Sounds, No Respiratory Distress Neck: Yes: Supple, Trachea in good position Breast: Yes: Within Normal Limits Cardiology: Yes: Regular Rhythm, Regular Rate, S1, S2 Abdominal: Yes: Non Tender, Flat, Soft, Increased Bowel Sounds, Other (small tim umbilical hernia reducible) Genitourinary: Yes: Within Normal Limits Back: Yes: Decreased Range of Motion Musculoskeletal: Yes: Muscle weakness Extremities: Yes: Within Normal Limits Neurological: Yes: lean manufacturing specialist II-XII NML intact, Fully Oriented, Alert, Motor Strength 5/5 Integumentary: Yes: Moist Lymphatic: Yes: Within Normal Limits - Diagnostic (1) Cannabis dependence Current Visit: Yes Status: Chronic (2) Nicotine dependence Current Visit: Yes Status: Chronic Qualifiers: Nicotine product type: cigarettes Substance use status: uncomplicated Qualified Code(s): F17.210 - Nicotine dependence, cigarettes, uncomplicated (3) Opioid dependence with withdrawal Current Visit: Yes Status: Chronic (4) Bipolar disorder Current Visit: Yes Status: Suspected Comment: Self reports. (5) Umbilical hernia Current Visit: Yes Status: Chronic Qualifiers: Obstruction and gangrene presence: without obstruction or gangrene Qualified Code(s): K42.9 - Umbilical hernia without obstruction or gangrene Cleared for Admission [facility] - Detox or Rehab [facility] Level of Care: Medically Managed Detox Regimen/Protocol: Methadone [facility] Breath Alcohol Content Breath Alcohol Content: 0 Urine Drug Screen - Results Drug Screen Negative: No Urine Drug Screen Results: THC-Marijuana, OPI-Opiates
[2018-04-06] MEDS ORDERED: ACETAMINOPHEN 325 MG TABLET (FP) PO PRN (12:42)
[2018-04-06] MEDS ORDERED: IBUPROFEN 400 MG TABLET (FP) PO PRN (12:42)
[2018-04-06] MEDS ORDERED: MAGNESIUM CITRATE 300 ML BOTTLE PO PRN (12:42)
[2018-04-06] MEDS ORDERED: guaiFENesin/D-METHORPHAN HB 10 ML UNIT-DOSE CUPS PO PRN (12:42)
[2018-04-06] MEDS ORDERED: hydrOXYzine PAMOATE 25 MG CAPSULE (FP) PO PRN (12:42)
[2018-04-06] MEDS ORDERED: NICOTINE POLACRILEX 4 MG GUM BUC PRN (12:42)
[2018-04-06] MEDS ORDERED: MENTHOL/PHENOL 1 EACH UD MM PRN (12:42)
[2018-04-06] MEDS ORDERED: MAG HYDROX/AL HYDROX/SIMETH 30 ML UNIT-DOSE CUP PO PRN (12:42)
[2018-04-06] MEDS ORDERED: P-EPHED 60MG/TRIPROLIDI 2.5MG TABLET PO PRN (12:42)
[2018-04-06] MEDS ORDERED: LOPERAMIDE HCL 2 MG CAPSULE PO PRN (12:42)
[2018-04-06] MEDS ORDERED: MAGNESIUM HYDROX 2400MG/30ML ORAL SUSPENSION 30 ML CUP PO PRN (12:42)
[2018-04-06] MEDS ORDERED: METHADONE HCL 10 MG TABLET (FOR DETOX USE ONLY) PO ONE ×2 (14:45→23:00)
[2018-04-06] MEDS: diazePAM 5 MG TABLET PO PRN ×2 (16:04→22:24)
[2018-04-06] MEDS ORDERED: MELATONIN 5 MG TABLETS PO PRN (22:00)
[2018-04-06] MEDS: THIAMINE HCL 100 MG TABLET (FP) PO SCH (22:24)
[2018-04-07] MEDS: diazePAM 5 MG TABLET PO PRN ×3 (09:26→22:04)
[2018-04-07] MEDS ORDERED: METHADONE HCL 10 MG TABLET (FOR DETOX USE ONLY) PO ONE (10:00)
[2018-04-07 10:07] LABS: HEMATOCRIT 39.5 % (35.4-49); HEMOGLOBIN 12.6 GM/dL (11.7-16.9); MCH 28.8 pg (25.7-33.7); MCHC 31.9 g/dl (32.0-35.9); MEAN CELL VOLUME 90.4 fl (80-96); MEAN PLT VOLUME 11.6 fl (7.5-11.1); PLATELET COUNT 213 K/MM3 (134-434); RBC 4.36 M/mm3 (4.00-5.60); RDW 14.4 % (11.9-15.9); WHITE BLOOD COUNT 5.5 K/mm3 (4.0-10.0)
[2018-04-07] MEDS: PRENATAL VITAMINS W/ FOLIC ACID TABLET (FP) PO SCH (10:12)
[2018-04-07] MEDS: NICOTINE 21 MG/24 HOURS TOPICAL PATCH TD SCH (10:14)
[2018-04-07 11:15] LABS: ALBUMIN 3.4 g/dl (3.4-5.0); ALK PHOS 61 U/L (45-117); ANION GAP 5 MMOL/L (8-16); BILIRUBIN,TOTAL 0.4 mg/dL (0.2-1); BLOOD UREA NITROGEN 13 mg/dL (7-18); CALCIUM 8.9 mg/dL (8.5-10.1); CHLORIDE 104 mmol/L (98-107); CO2 32 mmol/L (21-32); CREATININE 0.8 mg/dL (0.55-1.3); GLUCOSE,RANDOM 102 mg/dL (74-106); POTASSIUM 3.9 mmol/L (3.5-5.1); SGOT/AST 17 U/L (15-37); SGPT/ALT 21 U/L (13-61); SODIUM 141 mmol/L (136-145); TOT PROT 7.1 g/dl (6.4-8.2)
--- NOTE | 2018-04-07 11:33 | CONSULT ---
[facility] Psychiatric Consult - Data Date of interview: 04/17/18 Admission source: [facility] Identifying data: Patient is a 37 year old single male, father of one, unemployed (denies receiving financial assistance), and is currently homeless. This is one of multiple admissions for patient. Patient admitted to for opiate dependence. Substance Abuse History: Smoking Cessation. Smoking history: Current every day smoker. Have you smoked in the past 12 months: Yes. Aproximately how many cigarettes per day: 20. Cigars Per Day: 0. Hx Chewing Tobacco Use: No. Initiated information on smoking cessation: Yes. 'Breaking Loose' booklet given : 04/06/18. - Substance & Tx. History. Hx Alcohol Use: No. Hx Substance Use: Yes. Substance Use Type: Heroin, Marijuana. Hx Substance Use Treatment: Yes ( [facility]). - Substances Abused. Heroin. Route: Inhalation. Frequency: Daily. Amount used: 10 bags. Age of first use: 10. Date of Last Use: . Marijuana/Hashish. Route: Smoking. Frequency: Daily. Amount used: 20 bunch. Age of first use: 15. Date of Last Use: 04/05/18 Medical History: Seizures Psychiatric History: Patient denies h/o psychiatric treatment. As per policy writer's entry on 04/29/17, pt. reported multiple psychiatric hospitalizations with the most recent hospitalization at [facility] in January of 2017. He reported a diagnosis of bipolar disorder and was prescribed depakote although reported noncompliance to medication. Today, patient reports feeling fine and states he does not need psychotropic medications. Patient denies h/o suicide attempt. Physical/Sexual Abuse/Trauma History: denies. Mental Status Exam - Mental Status Exam Alert and Oriented to: Time, Place, Person Cognitive Function: Fair Patient Appearance: Well Groomed Mood: Euthymic Affect: Mood Congruent Patient Behavior: Guarded Speech Pattern: Garbled Voice Loudness: Moderately Soft/Quiet Thought Process: Goal Oriented Thought Disorder: Not Present Hallucinations: Denies Suicidal Ideation: Denies Homicidal Ideation: Denies Insight/Judgement: Poor Sleep: Fair Appetite: Fair Muscle strength/Tone: Normal Gait/Station: Normal Psychiatric Findings - Problem List ([place] 1, 2,3) (1) Substance induced mood disorder Current Visit: Yes Status: Acute (2) Cannabis dependence Current Visit: Yes Status: Chronic (3) Nicotine dependence Current Visit: Yes Status: Chronic Qualifiers: Nicotine product type: cigarettes Substance use status: uncomplicated Qualified Code(s): F17.210 - Nicotine dependence, cigarettes, uncomplicated (4) Opioid dependence with withdrawal Current Visit: Yes Status: Acute (5) Bipolar disorder Current Visit: Yes Status: Chronic Comment: Self reports. - Initial Treatment Plan Initial Treatment Plan: Psychoeducation provided. Detoxification in progress. Observation.
--- NOTE | 2018-04-07 14:17 | PN ---
BHS COWS - Scale Resting Pulse: 0= [place] 80 or Below Sweatin= Chills/Flushing Restless Observation: 3= Extraneous Movement Pupil Size: 1= Pupils >than Normal Bone or Joint Aches: 2= Severe Diffuse Aches Runny Nose/ Eye Tearin= Runny Nose/Eyes GI Upset > 30mins: 3= Vomiting/Diarrhea Tremor Observation of Outstretched Hands: 2= Slight Tremor Visible Yawning Observation: 1= 1-2x During Session Anxiety or Irritability: 2=Irritable/Anxious Goose Flesh Skin: 0=Smooth Skin COWS Score: 17 BHS Progress Note (SOAP) Subjective: Chills, sweating, n/v/d Objective: 04/07/18 14:15 Last Vital Signs Temp Pulse Resp BP Pulse Ox 97.1 F L 77 18 115/75 04/07/18 09:13 04/07/18 09:13 04/07/18 09:13 04/07/18 09:13 Laboratory Tests 04/07/18 04/07/18 06:00 06:00 WBC 5.5 RBC 4.36 Hgb 12.6 Hct 39.5 MCV 90.4 MCH 28.8 MCHC 31.9 L RDW 14.4 D Plt Count 213 D MPV 11.6 H Sodium 141 Potassium 3.9 Chloride 104 Carbon Dioxide 32 Anion Gap 5 L BUN 13 Creatinine 0.8 Creat Clearance w eGFR > 60 Random Glucose 102 Calcium 8.9 Total Bilirubin 0.4 AST 17 ALT 21 Alkaline Phosphatase 61 Total Protein 7.1 Albumin 3.4 Labs reviewed Assessment: 04/07/18 14:16 Withdrawal symptoms Plan: Continue detox Encouraged PO water intake
[2018-04-07 21:32] LABS: URINE APPEARANCE CLEAR; URINE BILIRUBIN NEGATIVE (<2.0 mg/dL); URINE COLOR LTYELLOW; URINE GLUCOSE (UA) NEGATIVE (NEGATIVE); URINE KETONE NEGATIVE (NEGATIVE); URINE LEUK ESTERASE NEGATIVE (NEGATIVE); URINE NITRITE NEGATIVE (NEGATIVE); URINE PROTEIN NEGATIVE (NEGATIVE); URINE UROBILINOGEN NEGATIVE mg/dL (0.2-1.0)
[2018-04-07] MEDS: THIAMINE HCL 100 MG TABLET (FP) PO SCH (22:04)
[2018-04-08] MEDS: diazePAM 5 MG TABLET PO PRN ×4 (02:01→22:03)
[2018-04-08] MEDS ORDERED: METHADONE HCL 5 MG TABLET (FOR DETOX USE ONLY) PO ONE (10:00)
[2018-04-08] MEDS: PRENATAL VITAMINS W/ FOLIC ACID TABLET (FP) PO SCH (10:30)
[2018-04-08] MEDS: NICOTINE 21 MG/24 HOURS TOPICAL PATCH TD SCH (10:30)
--- NOTE | 2018-04-08 12:05 | PN ---
BHS COWS - Scale Resting Pulse: 1= [place] 81-100 Sweatin= Chills/Flushing Restless Observation: 3= Extraneous Movement Pupil Size: 0= Normal to Room Light Bone or Joint Aches: 1= Mild Discomfort Runny Nose/ Eye Tearin= Runny Nose/Eyes GI Upset > 30mins: 1= Stomach Cramp Tremor Observation of Outstretched Hands: 2= Slight Tremor Visible Yawning Observation: 0= None Anxiety or Irritability: 2=Irritable/Anxious Goose Flesh Skin: 0=Smooth Skin COWS Score: 13 BHS Progress Note (SOAP) Subjective: Anxious, sweating, interrupted sleep Objective: 04/08/18 12:03 Last Vital Signs Temp Pulse Resp BP Pulse Ox 96.9 F L 86 18 111/69 04/07/18 21:49 04/07/18 21:49 04/08/18 06:30 04/07/18 21:49 Laboratory Tests 04/07/18 04/07/18 04/07/18 06:00 06:00 06:00 WBC 5.5 RBC 4.36 Hgb 12.6 Hct 39.5 MCV 90.4 MCH 28.8 MCHC 31.9 L RDW 14.4 D Plt Count 213 D MPV 11.6 H Sodium 141 Potassium 3.9 Chloride 104 Carbon Dioxide 32 Anion Gap 5 L BUN 13 Creatinine 0.8 Creat Clearance w eGFR > 60 Random Glucose 102 Calcium 8.9 Total Bilirubin 0.4 AST 17 ALT 21 Alkaline Phosphatase 61 Total Protein 7.1 Albumin 3.4 Urine Color Urine Appearance Urine pH Ur Specific [place] Urine Protein Urine Glucose (UA) Urine Ketones Urine Blood Urine Nitrite Urine Bilirubin Urine Urobilinogen Ur Leukocyte Esterase RPR Titer Nonreactive 04/07/18 18:19 WBC RBC Hgb Hct MCV MCH MCHC RDW Plt Count MPV Sodium Potassium Chloride Carbon Dioxide Anion Gap BUN Creatinine Creat Clearance w eGFR Random Glucose Calcium Total Bilirubin AST ALT Alkaline Phosphatase Total Protein Albumin Urine Color Ltyellow Urine Appearance Clear Urine pH 5.0 D Ur Specific [place] 1.018 Urine Protein Negative Urine Glucose (UA) Negative Urine Ketones Negative Urine Blood Negative Urine Nitrite Negative Urine Bilirubin Negative Urine Urobilinogen Negative Ur Leukocyte Esterase Negative RPR Titer Labs reviewed Assessment: 04/08/18 12:04 Withdrawal symptoms Plan: Continue detox Encouraged PO water intake
[2018-04-08] MEDS: VITAMINS A AND D TOPICAL OINTMENT 60 GM TUBE TP SCH ×2 (15:54→21:09)
[2018-04-08] MEDS: THIAMINE HCL 100 MG TABLET (FP) PO SCH (22:03)
[2018-04-09] MEDS: diazePAM 5 MG TABLET PO PRN (02:37)
[2018-04-09 09:39] VITALS: BP 113/61; PULSE 86; TEMP 96.4
[2018-04-09] MEDS ORDERED: METHADONE HCL 5 MG TABLET (FOR DETOX USE ONLY) PO ONE (10:00)
[2018-04-09] MEDS: NICOTINE 21 MG/24 HOURS TOPICAL PATCH TD SCH (10:06)
[2018-04-09] MEDS: VITAMINS A AND D TOPICAL OINTMENT 60 GM TUBE TP SCH (10:06)
[2018-04-09] MEDS: PRENATAL VITAMINS W/ FOLIC ACID TABLET (FP) PO SCH (10:06)
--- NOTE | 2018-04-09 10:43 | PN ---
BHS Progress Note (SOAP) Subjective: PT APPEARED VERY DROWSY,AGITATED. OOB AND GOING INTO OTHER ROOMS OTHER THAN HIS ROOM WITH SLIGHTLY UNSTEADY GAIT. REDIRECTED AND ENCOURAGED TO STAY IN BED AND GET SOME REST. Objective: 04/09/18 10:43 Vital Signs 04/09/18 09:38 Temperature 96.4 F L Pulse Rate 86 Respiratory 18 Rate Blood Pressure 113/61 Laboratory Tests 04/07/18 04/07/18 04/07/18 06:00 06:00 06:00 WBC 5.5 RBC 4.36 Hgb 12.6 Hct 39.5 MCV 90.4 MCH 28.8 MCHC 31.9 L RDW 14.4 D Plt Count 213 D MPV 11.6 H Sodium 141 Potassium 3.9 Chloride 104 Carbon Dioxide 32 Anion Gap 5 L BUN 13 Creatinine 0.8 Creat Clearance w eGFR > 60 Random Glucose 102 Calcium 8.9 Total Bilirubin 0.4 AST 17 ALT 21 Alkaline Phosphatase 61 Total Protein 7.1 Albumin 3.4 Urine Color Urine Appearance Urine pH Ur Specific [place] Urine Protein Urine Glucose (UA) Urine Ketones Urine Blood Urine Nitrite Urine Bilirubin Urine Urobilinogen Ur Leukocyte Esterase RPR Titer Nonreactive 04/07/18 18:19 WBC RBC Hgb Hct MCV MCH MCHC RDW Plt Count MPV Sodium Potassium Chloride Carbon Dioxide Anion Gap BUN Creatinine Creat Clearance w eGFR Random Glucose Calcium Total Bilirubin AST ALT Alkaline Phosphatase Total Protein Albumin Urine Color Ltyellow Urine Appearance Clear Urine pH 5.0 D Ur Specific [place] 1.018 Urine Protein Negative Urine Glucose (UA) Negative Urine Ketones Negative Urine Blood Negative Urine Nitrite Negative Urine Bilirubin Negative Urine Urobilinogen Negative Ur Leukocyte Esterase Negative RPR Titer Assessment: 04/09/18 10:43 WITHDRAWAL SX Plan: CONTINUE DETOX INCREASE PO FLUIDS SAFETY PRECAUTIONS PER PROTOCOL HOLD 10 A.M METHADONE DISCUSSED WITH NURSE.
[2018-04-10] MEDS ORDERED: METHADONE HCL 10 MG TABLET (FOR DETOX USE ONLY) PO ONE (10:00)
--- NOTE | 2018-04-10 16:05 | PN ---
S Progress Note Note: PT SIGNED OUT AMA PER NURSING NOTES(PLEASE SEE NOTES). PT WAS ALERT O X 3 WHEN ROUNDED. PT WITH CONSTANT CURSING AND VERBAL AGGRESSION TOWARDS STAFF AND UNABLE TO ACCEPT REDIRECTION. DECLINED TO CONTINUE WTIH DETOX FOR PERSONAL REASONS. TO FOLLOW UP WITH AFTERCARE PLANNED WITH COUNSELLING.
--- NOTE | 2018-04-10 16:08 | DS ---
[facility] Detox Discharge Summary Admission Date: 04/06/18 Discharge Date: 04/09/18 - History Present History: Cannabis Dependence, Opioid Dependence Additional Comments: PT DECLINED TO CONTINUE WITH DETOX FOR PERSONAL REASONS. Pertinent Past History: PLEASE SEE DX BELOW - Physical Exam Results Vital Signs: Vital Signs Temperature 96.4 F L 04/09/18 09:38 Pulse Rate 86 04/09/18 09:38 Respiratory Rate 18 04/09/18 09:38 Blood Pressure 113/61 04/09/18 09:38 O2 Sat by Pulse Oximetry (%) Pertinent Admission Physical Exam Findings: WITHDRAWAL SX Laboratory Tests 04/07/18 04/07/18 04/07/18 06:00 06:00 06:00 WBC 5.5 RBC 4.36 Hgb 12.6 Hct 39.5 MCV 90.4 MCH 28.8 MCHC 31.9 L RDW 14.4 D Plt Count 213 D MPV 11.6 H Sodium 141 Potassium 3.9 Chloride 104 Carbon Dioxide 32 Anion Gap 5 L BUN 13 Creatinine 0.8 Creat Clearance w eGFR > 60 Random Glucose 102 Calcium 8.9 Total Bilirubin 0.4 AST 17 ALT 21 Alkaline Phosphatase 61 Total Protein 7.1 Albumin 3.4 Urine Color Urine Appearance Urine pH Ur Specific [employer] Urine Protein Urine Glucose (UA) Urine Ketones Urine Blood Urine Nitrite Urine Bilirubin Urine Urobilinogen Ur Leukocyte Esterase RPR Titer Nonreactive 04/07/18 18:19 WBC RBC Hgb Hct MCV MCH MCHC RDW Plt Count MPV Sodium Potassium Chloride Carbon Dioxide Anion Gap BUN Creatinine Creat Clearance w eGFR Random Glucose Calcium Total Bilirubin AST ALT Alkaline Phosphatase Total Protein Albumin Urine Color Ltyellow Urine Appearance Clear Urine pH 5.0 D Ur Specific [employer] 1.018 Urine Protein Negative Urine Glucose (UA) Negative Urine Ketones Negative Urine Blood Negative Urine Nitrite Negative Urine Bilirubin Negative Urine Urobilinogen Negative Ur Leukocyte Esterase Negative RPR Titer - Treatment Hospital Course: Discharged Condition Good - Medication Discharge Medications: Ambulatory Orders NK [No Known Home Medication] 12/13/17 - Diagnosis (1) Opioid dependence with withdrawal Status: Acute (2) Nicotine dependence Status: Acute Qualifiers: Nicotine product type: cigarettes Substance use status: in withdrawal Qualified Code(s): F17.213 - Nicotine dependence, cigarettes, with withdrawal (3) Weight loss Status: Acute (4) Cannabis dependence Status: Acute - AMA Did Patient Leave Against Medical Advice: Yes (AMA)
[2018-04-11] MEDS ORDERED: METHADONE HCL 5 MG TABLET (FOR DETOX USE ONLY) PO ONE (06:00)
== END 2018-04-09 12:50 | disposition left against medical advice (07) | DRG 894 ==
LOC: YASAS 10:33 → Y3N 14:19
PROC: HZ2ZZZZ Detoxification Services for Substance Abuse Treatment (ICD-10-PCS; principal; 2018-04-06)
DX: F11.23 Opioid dependence with withdrawal (principal); F12.20 Cannabis dependence, uncomplicated; F17.213 Nicotine dependence, cigarettes, with withdrawal; F31.9 Bipolar disorder, unspecified; F19.24 Other psychoactive substance dependence with psychoactive substance-induced mood disorder; K42.9 Umbilical hernia without obstruction or gangrene; R63.4 Abnormal weight loss; Z68.20 Body mass index [BMI] 20.0-20.9, adult; Z59.0 Homelessness
CPT/HCPCS: 36415; 80053; 81003; 85027; 86593

== ENCOUNTER 2019-12-05 17:41 | Inpatient (IN) | payer OTHER ==
--- NOTE | 2019-12-05 19:24 | HP ---
COWS - Scale Resting Pulse: 0= [place] 80 or Below Sweatin= No chills or Flushing Restless Observation: 0= Sits Still Pupil Size: 0= Normal to Room Light Bone or Joint Aches: 1= Mild Discomfort Runny Nose/ Eye Tearin= None GI Upset > 30mins: 1= Stomach Cramp Tremor Observation: 0= None Yawning Observation: 1= 1-2x During Session Anxiety or Irritability: 0= None Goose Flesh Skin: 0=Smooth Skin COWS Score: 3 CIWA Score - Admission Criteria OASAS Guidelines: Admission for Medically Managed Detox: Requires at least one of the followin. CIWA greater than 12 2. Seizures within the past 24 hours 3. Delirium tremens within the past 24 hours 4. Hallucinations within the past 24 hours 5. Acute intervention needed for co occurring medical disorder 6. Acute intervention needed for co occurring psychiatric disorder 7. Severe withdrawal that cannot be handled at a lower level of care (continued vomiting, continued diarrhea, abnormal vital signs) requiring intravenous medication and/or fluids 8. Admitting History and Physical - Admission Chief Complaint: 'Detox from heroin' History of Present Illness: CC: 'Detox from heroin' HPI: Dajuan is a 39 year old with opioid use disorder who presents for detox. He was previously admitted at [facility] in April 2018. Substance: Heroin Amount: 6 bags/day Route: Sniff Date of last use: 12/05/19, 12pm Age of first use: 18 Substance: Nicotine Amount: 5 cigarette's/day Date of last use: 12/05/19 Age of first use: 12 Substance: Marijuana Amount: 4 blunts/day Date of last use: 12/05/19 Age of first use: 12 PMH: None PSH: None Psych: Bipolar disorder, not on meds Social: Living with a friend Legal: None History Source: Patient Limitations to Obtaining History: No Limitations - Smoking History Smoking history: Current every day smoker Have you smoked in the past 12 months: Yes Aproximately how many cigarettes per day: 20 - Alcohol/Substance Use Hx Alcohol Use: No - Social History Usual Living Arrangement: Yes: Alone Admission [facility] Chief Complaint: Detox from heroin Allergies/Adverse Reactions: Allergies Allergy/AdvReac Type Severity Reaction Status Date / Time No Known Allergies Allergy Verified 04/06/18 11:55 Exam Limitations: No Limitations - Ebola screening Have you traveled outside of the country in the last 21 days: No Have you had contact with anyone from an Ebola affected area: No Have you been sick,other than usual withdrawal symptoms: No Do you have a fever: No - Review of Systems Constitutional: Fever, Unintentional Wgt. Loss EENT: denies: Eye Pain, Ear Pain, Nose Congestion Respiratory: reports: Shortness of Breath. denies: Cough Cardiac: denies: Chest Pain, Lightheadedness, Palpitations, Syncope GI: denies: Constipated, Diarrhea, Nausea : reports: No Symptoms Reported Musculoskeletal: reports: Back Pain Integumentary: denies: Rash Neuro: denies: Headache, Seizure, Tremors Endocrine: reports: No Symptoms Reported Hematology: denies: Blood Clots Psychiatric: reports: Orientated x3, Depressed Patient History - Patient Medical History Hx Anemia: No Hx Asthma: No Hx Chronic Obstructive Pulmonary Disease (COPD): No Hx Cancer: No Hx Cardiac Disorders: No Hx Congestive Heart Failure: No Hx Hypertension: No Hx Hypercholesterolemia: No Hx Pacemaker: No HX Cerebrovascular Accident: No Hx Seizures: No (DENIES) Hx Dementia: No Hx Diabetes: No Hx Gastrointestinal Disorders: No Hx Liver Disease: No Hx Genitourinary Disorders: No Hx Sexually Transmitted Disorders: No Hx Renal Disease (ESRD): No Hx Thyroid Disease: No Hx Human Immunodeficiency Virus (HIV): No (last 06/20 negative) Hx Hepatitis C: No Hx Depression: No Hx Suicide Attempt: No Hx Bipolar Disorder: Yes (no meds ) Hx Schizophrenia: No - Patient Surgical History Past Surgical History: No Hx Neurologic Surgery: No Hx Cataract Extraction: No Hx Cardiac Surgery: No Hx Lung Surgery: No Hx Breast Surgery: No Hx Breast Biopsy: No Hx Abdominal Surgery: No Hx Appendectomy: No Hx Cholecystectomy: No Hx Genitourinary Surgery: No Hx Section: No Hx Orthopedic Surgery: No Anesthesia Reaction: No - PPD History Date: 12/15/17 Results: 0MM - Smoking Cessation Smoking history: Current every day smoker Have you smoked in the past 12 months: Yes Aproximately how many cigarettes per day: 5 Cigars Per Day: 0 Hx Chewing Tobacco Use: No Initiated information on smoking cessation: Yes 'Breaking Loose' booklet given: 12/05/19 Admission Physical Exam BHS - Physical General Appearance: Yes: Disheveled, Thin HEENTM: Yes: Hearing grossly Normal, Normocephalic, Normal Voice, MANA Respiratory: Yes: Lungs Clear, Decreased Breath Sounds Neck: Yes: Within Normal Limits Breast: Yes: Breast Exam Deferred Cardiology: Yes: Regular Rhythm, Regular Rate, S1, S2. No: Edema, Murmur Abdominal: Yes: Non Tender, Flat, Soft Genitourinary: Yes: Within Normal Limits Back: Yes: Normal Inspection Extremities: Yes: Other (small excoriations and scabs on bilateral lower extremities) Neurological: Yes: Fully Oriented, Finger to Nose, Depressed Affect Integumentary: Yes: Dry, Warm, Other (skin discoloration on upper back, with excoriations and scabbing) - Diagnostic (1) Cannabis dependence Current Visit: No Status: Chronic (2) Opioid dependence with withdrawal Current Visit: No Status: Acute Cleared for Admission S - Detox or Rehab [facility] Level of Care: Medically Managed Screened but not Admitted - Documentation of Visit Screened but not Admitted: No Breathalyzer - Breathalyzer Breathalyzer: 0 Urine Drug Screen - Test Device Lot number: [id number] Expiration date: 08/08/21 - Control Is test valid?: Yes - Results Urine drug screen results: THC-Marijuana, MOP-Opiates Inpatient Rehab Admission - Rehab Decision to Admit Inpatient rehab admission?: No
[2019-12-05] MEDS ORDERED: ONDANSETRON *ODT* 4 MG TABLET SL PRN (19:53)
[2019-12-05] MEDS ORDERED: NICOTINE POLACRILEX 2 MG GUM BUC PRN (19:53)
[2019-12-05] MEDS ORDERED: MAGNESIUM HYDROX 2400MG/30ML ORAL SUSPENSION 30 ML CUP PO PRN (19:53)
[2019-12-05] MEDS ORDERED: METHOCARBAMOL 500 MG TABLET PO PRN (19:53)
[2019-12-05] MEDS ORDERED: MENTHOL/PHENOL 1 EACH UD MM PRN (19:53)
[2019-12-05] MEDS ORDERED: MAG HYDROX/AL HYDROX/SIMETH 30 ML UNIT-DOSE CUP PO PRN (19:53)
[2019-12-05] MEDS ORDERED: IBUPROFEN 400 MG TABLET (FP) PO PRN (19:53)
[2019-12-05] MEDS ORDERED: ACETAMINOPHEN 325 MG TABLET (FP) PO PRN ×2 (19:53)
[2019-12-05] MEDS ORDERED: BISMUTH SUBSALICYLATE 524 MG/30 ML UD PO PRN (19:53)
[2019-12-05] MEDS ORDERED: MAGNESIUM CITRATE 300 ML BOTTLE PO PRN (19:53)
--- NOTE | 2019-12-05 20:06 | PN ---
Teaching Attending Note Name of Resident: Sonali Singh ATTENDING PHYSICIAN STATEMENT I saw and evaluated the patient. I reviewed the resident's note and discussed the case with the resident. I agree with the resident's findings and plan as documented. SUBJECTIVE: 39 y.o. male requesting detox from opiate use . Pt is irritable , difficulty answering questions . OBJECTIVE: wnwd , drowsy large posterior thorax excoriations, per pt self- inflicted. ASSESSMENT AND PLAN: OUD - pt admitted for safety , monitor for development of w/d symptoms.
[2019-12-05] MEDS ORDERED: hydrOXYzine PAMOATE 25 MG CAPSULE (FP) PO PRN (20:07)
[2019-12-05 20:21] VITALS: BMI 22.1
[2019-12-05 21:56] VITALS: TEMP 97.1
[2019-12-05] MEDS ORDERED: THIAMINE HCL 100 MG TABLET (FP) PO SCH (22:00)
[2019-12-05] MEDS ORDERED: MELATONIN 5 MG TABLETS PO SCH (22:00)
[2019-12-05] MEDS ORDERED: BACITRACIN/POLYMYXIN B SULFATE 15 GM TUBE TP SCH (22:00)
[2019-12-05] MEDS ORDERED: hydrOXYzine PAMOATE 25 MG CAPSULE (FP) PO SCH (22:00)
--- NOTE | 2019-12-06 07:27 | PN ---
BHS COWS - Scale Resting Pulse: 1= [place] 81-100 Sweatin= Chills/Flushing Restless Observation: 0= Sits Still Pupil Size: 1= Pupils >than Normal Bone or Joint Aches: 1= Mild Discomfort Runny Nose/ Eye Tearin= Nasal Congestion GI Upset > 30mins: 2= Nausea/Diarrhea Tremor Observation of Outstretched Hands: 2= Slight Tremor Visible Yawning Observation: 1= 1-2x During Session Anxiety or Irritability: 2=Irritable/Anxious Goose Flesh Skin: 3=Piloerection COWS Score: 15 BH Progress Note (SOAP) Subjective: seen for c/o withdrawal sx's. reports shakes, chills nausea, anxious, "I feel like shit" Objective: 12/06/19 07:24 a/o x3 oob ambulating, yawning, tremulous, with blankets wrapped around him p- vs 126/75 p- 81 rr 20. t. 97.1 via scanner Assessment: 12/06/19 07:26 opiate withdrawal sx's Plan: start methadone taper
[2019-12-06] MEDS ORDERED: NALOXONE HCL 0.4 MG/ML VIAL IM PRN (07:28)
[2019-12-06 07:29] VITALS: BP 126/75; PULSE 81
[2019-12-06] MEDS ORDERED: METHADONE HCL 10 MG TABLET (FOR DETOX USE ONLY) PO ONE ×2 (07:45→10:00)
--- NOTE | 2019-12-06 09:12 | EKG ---
Test Reason : Blood Pressure : / mmHG Vent. Rate : 069 BPM Atrial Rate : 069 BPM P-R Int : 132 ms QRS Dur : 090 ms QT Int : 376 ms P-R-T Axes : 015 084 077 degrees QTc Int : 402 ms NORMAL SINUS RHYTHM NONSPECIFIC ST ABNORMALITY ABNORMAL ECG WHEN COMPARED WITH ECG OF 05-JAN-2018 13:27, NO SIGNIFICANT CHANGE WAS FOUND Confirmed by Jaime Ruth ([id number]) on 12/06/2019 9:11:47 AM Referred By: Abdullahi Neil Confirmed By:Jaime Ruth
--- NOTE | 2019-12-06 09:42 | PN ---
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 The methadone I was given is not holding me. Pt was told to give me a chance to log into the computer to see what was ordered and how to help. Pt did not want to wait. Pt was asked to stay and prevent any relapse, seizures, DT, OD and or loss and to give detox a chance. I offered to assist with any medication adjustment to assist with his withdrawals, however, pt was pacing up and down the hallway looking to have someone escort him off the unit. Pt chose to sign out AMA.
--- NOTE | 2019-12-06 09:45 | DS ---
[facility] Detox Discharge Summary Admission Date: 12/05/19 - History Present History: Opioid Dependence, Pcp Dependence - Physical Exam Results Vital Signs: Vital Signs Temperature 97.1 F L 12/06/19 07:28 Pulse Rate 81 12/06/19 07:28 Respiratory Rate 18 12/06/19 07:28 Blood Pressure 126/75 12/06/19 07:28 O2 Sat by Pulse Oximetry (%) 97 12/06/19 07:28 Pertinent Admission Physical Exam Findings: Vital Signs Temperature 97.1 F L 12/06/19 07:28 Pulse Rate 81 12/06/19 07:28 Respiratory Rate 18 12/06/19 07:28 Blood Pressure 126/75 12/06/19 07:28 O2 Sat by Pulse Oximetry (%) 97 12/06/19 07:28 [id number] ambulating refused further treatment regardless of multi-disciplinary team involved to assist with his care. pt chose to sign out AMA. - Treatment Patient has Accepted a Rehab Referral to: pt refused aftercare referrals - Medication Discharge Medications: Ambulatory Orders NK [No Known Home Medication] 12/13/17 - Diagnosis (1) Syncope Current Visit: No Status: Active (2) AMA - Signed out against medical advice Current Visit: No Status: Acute (3) Abscess Current Visit: No Status: Acute (4) Dehydration Current Visit: No Status: Acute (5) Nicotine dependence Current Visit: No Status: Acute Qualifiers: Nicotine product type: cigarettes Substance use status: in withdrawal Qualified Code(s): F17.213 - Nicotine dependence, cigarettes, with withdrawal (6) Opioid dependence with withdrawal Current Visit: No Status: Acute (7) Opioid-induced mood disorder Current Visit: No Status: Acute (8) PCP (phencyclidine) abuse Current Visit: No Status: Acute (9) Substance induced mood disorder Current Visit: No Status: Acute (10) Weight loss Current Visit: No Status: Acute (11) Anxiety disorder Current Visit: No Status: Chronic Qualifiers: Anxiety disorder type: unspecified anxiety disorder Qualified Code(s): F41.9 - Anxiety disorder, unspecified (12) Bipolar disorder Current Visit: No Status: Chronic (13) Cannabis dependence Current Visit: No Status: Chronic (14) Heroin dependence Current Visit: No Status: Chronic (15) Homeless Current Visit: No Status: Chronic (16) Umbilical hernia Current Visit: No Status: Chronic Qualifiers: Obstruction and gangrene presence: without obstruction or gangrene Qualified Code(s): K42.9 - Umbilical hernia without obstruction or gangrene (17) Depressed affect Current Visit: No Status: Suspected (18) Depression Current Visit: No Status: Suspected (19) Seizure Current Visit: No Status: Suspected - AMA Did Patient Leave Against Medical Advice: Yes
[2019-12-06] MEDS ORDERED: NICOTINE 7 MG/24 HOURS TOPICAL PATCH TD SCH (10:00)
[2019-12-06] MEDS ORDERED: PRENATAL VITAMINS W/ FOLIC ACID TABLET (FP) PO SCH (10:00)
[2019-12-06] MEDS ORDERED: PNEUMOCOCCAL 23 VACCINE 0.5 ML VIAL IM ONE (12:00)
[2019-12-06] MEDS ORDERED: PNEUMOC 13-VAL CONJ-DIP CRM/PF 0.5 ML DISP.SYRIN IM ONE (12:00)
[2019-12-07] MEDS ORDERED: METHADONE HCL 10 MG TABLET (FOR DETOX USE ONLY) PO ONE (10:00)
[2019-12-08] MEDS ORDERED: METHADONE HCL 5 MG TABLET (FOR DETOX USE ONLY) PO ONE (10:00)
[2019-12-09] MEDS ORDERED: METHADONE (DETOX) 10 MG, METHADONE (DETOX) 5 MG PO ONE (10:00)
[2019-12-10] MEDS ORDERED: METHADONE HCL 10 MG TABLET (FOR DETOX USE ONLY) PO ONE (10:00)
[2019-12-11] MEDS ORDERED: METHADONE HCL 5 MG TABLET (FOR DETOX USE ONLY) PO ONE (06:00)
== END 2019-12-06 09:16 | disposition left against medical advice (07) | DRG 894 ==
LOC: YASAS 17:41 → Y6N 19:57
PROVIDERS: ADMIT Allergy & Immunology; ATTEND Allergy & Immunology
PROC: HZ2ZZZZ Detoxification Services for Substance Abuse Treatment (ICD-10-PCS; principal; 2019-12-05)
DX: F11.23 Opioid dependence with withdrawal (principal); F11.24 Opioid dependence with opioid-induced mood disorder; F12.20 Cannabis dependence, uncomplicated; F16.10 Hallucinogen abuse, uncomplicated; F17.213 Nicotine dependence, cigarettes, with withdrawal; F19.24 Other psychoactive substance dependence with psychoactive substance-induced mood disorder; F41.9 Anxiety disorder, unspecified; F32.9 Major depressive disorder, single episode, unspecified; E86.0 Dehydration; R63.4 Abnormal weight loss; K42.9 Umbilical hernia without obstruction or gangrene; Z59.0 Homelessness
CPT/HCPCS: 93005; 93010; U0003

== ENCOUNTER 2020-03-25 17:33 | Inpatient (IN) | payer OTHER ==
[2020-03-25 17:51] VITALS: BMI 20.7
[2020-03-25] MEDS ORDERED: MENTHOL/PHENOL 1 EACH UD MM PRN (18:21)
[2020-03-25] MEDS ORDERED: MAGNESIUM CITRATE 300 ML BOTTLE PO PRN (18:21)
[2020-03-25] MEDS ORDERED: LOPERAMIDE HCL 2 MG CAPSULE PO PRN (18:21)
[2020-03-25] MEDS ORDERED: guaiFENesin 200 MG/10 ML 10 ML UNIT-DOSE CUPS PO PRN (18:21)
[2020-03-25] MEDS ORDERED: hydrOXYzine PAMOATE 25 MG CAPSULE (FP) PO PRN (18:21)
[2020-03-25] MEDS ORDERED: NALOXONE HCL 0.4 MG/ML VIAL IM PRN (18:21)
[2020-03-25] MEDS ORDERED: cloNIDine HCL 0.1 MG TABLET PO PRN (18:21)
[2020-03-25] MEDS ORDERED: MAG HYDROX/AL HYDROX/SIMETH 30 ML UNIT-DOSE CUP PO PRN (18:21)
[2020-03-25] MEDS ORDERED: METHOCARBAMOL 500 MG TABLET PO PRN (18:21)
[2020-03-25] MEDS ORDERED: IBUPROFEN 400 MG TABLET (FP) PO PRN (18:21)
[2020-03-25] MEDS ORDERED: NICOTINE POLACRILEX 2 MG GUM BUC PRN (18:21)
[2020-03-25] MEDS ORDERED: MAGNESIUM HYDROX 2400MG/30ML ORAL SUSPENSION 30 ML CUP PO PRN (18:21)
[2020-03-25] MEDS ORDERED: ONDANSETRON *ODT* 4 MG TABLET SL PRN (18:21)
[2020-03-25] MEDS ORDERED: P-EPHED 60MG/TRIPROLIDI 2.5MG TABLET PO PRN (18:21)
[2020-03-25] MEDS ORDERED: BISMUTH SUBSALICYLATE 524 MG/30 ML UD PO PRN (18:21)
[2020-03-25] MEDS ORDERED: ACETAMINOPHEN 325 MG TABLET (FP) PO PRN ×2 (18:21)
[2020-03-25] MEDS ORDERED: METHADONE HCL 10 MG TABLET (FOR DETOX USE ONLY) PO ONE (19:00)
[2020-03-25] MEDS: THIAMINE HCL 100 MG TABLET (FP) PO SCH (23:29)
[2020-03-25] MEDS: MELATONIN 5 MG TABLETS PO SCH (23:29)
[2020-03-26] MEDS ORDERED: METHADONE HCL 5 MG TABLET (FOR DETOX USE ONLY) ONE (09:19)
[2020-03-26] MEDS ORDERED: METHADONE HCL 10 MG TABLET (FOR DETOX USE ONLY) ONE (09:19)
[2020-03-26] MEDS ORDERED: METHADONE (DETOX) 20 MG, METHADONE (DETOX) 5 MG PO ONE (10:00)
[2020-03-26 10:18] LABS: POTASSIUM 4.2 mmol/L (3.5-5.1)
[2020-03-26 10:21] LABS: CALCIUM 9.2 mg/dL (8.5-10.1)
[2020-03-26 10:22] LABS: ALBUMIN 3.7 g/dl (3.4-5.0); BLOOD UREA NITROGEN 15.4 mg/dL (7-18)
[2020-03-26 10:23] LABS: MCH 29.6 pg (25.7-33.7); MCHC 33.3 g/dl (32.0-35.9); MEAN CELL VOLUME 88.8 fl (80-96); MEAN PLT VOLUME 11.4 fl (7.5-11.1); PLATELET COUNT 181 K/MM3 (134-434); RDW 13.5 % (11.9-15.9); WHITE BLOOD COUNT 8.4 K/mm3 (4.0-10.0)
[2020-03-26] MEDS: PRENATAL VITAMINS W/ FOLIC ACID TABLET (FP) PO SCH (10:23)
[2020-03-26] MEDS: NICOTINE 14 MG/24 HOURS TOPICAL PATCH TD SCH (10:23)
[2020-03-26 10:25] LABS: CREATININE 0.7 mg/dL (0.55-1.3)
[2020-03-26 10:27] LABS: BILIRUBIN,TOTAL 1.1 mg/dL (0.2-1); TOT PROT 6.9 g/dl (6.4-8.2)
[2020-03-26] MEDS ORDERED: diazePAM 5 MG TABLET PO PRN (10:50)
[2020-03-26] MEDS: MELATONIN 5 MG TABLETS PO SCH (22:14)
[2020-03-26] MEDS: THIAMINE HCL 100 MG TABLET (FP) PO SCH (22:14)
[2020-03-27] MEDS ORDERED: METHADONE HCL 10 MG TABLET (FOR DETOX USE ONLY) PO ONE (10:00)
[2020-03-27] MEDS: PRENATAL VITAMINS W/ FOLIC ACID TABLET (FP) PO SCH (10:54)
[2020-03-27] MEDS: NICOTINE 14 MG/24 HOURS TOPICAL PATCH TD SCH (10:54)
[2020-03-27] MEDS: THIAMINE HCL 100 MG TABLET (FP) PO SCH (23:47)
[2020-03-27] MEDS: MELATONIN 5 MG TABLETS PO SCH (23:47)
[2020-03-28] MEDS ORDERED: METHADONE HCL 5 MG TABLET (FOR DETOX USE ONLY) ONE (08:53)
[2020-03-28] MEDS ORDERED: METHADONE HCL 10 MG TABLET (FOR DETOX USE ONLY) ONE (08:53)
[2020-03-28] MEDS ORDERED: METHADONE (DETOX) 10 MG, METHADONE (DETOX) 5 MG PO ONE (10:00)
[2020-03-28] MEDS: PRENATAL VITAMINS W/ FOLIC ACID TABLET (FP) PO SCH (10:44)
[2020-03-28] MEDS: NICOTINE 14 MG/24 HOURS TOPICAL PATCH TD SCH (10:44)
[2020-03-28] MEDS: MELATONIN 5 MG TABLETS PO SCH (22:16)
[2020-03-28] MEDS: THIAMINE HCL 100 MG TABLET (FP) PO SCH (22:17)
[2020-03-29] MEDS ORDERED: MASKS NR ONE (08:58)
[2020-03-29] MEDS ORDERED: METHADONE HCL 10 MG TABLET (FOR DETOX USE ONLY) PO ONE (10:00)
[2020-03-29] MEDS: PRENATAL VITAMINS W/ FOLIC ACID TABLET (FP) PO SCH (12:24)
[2020-03-29] MEDS: NICOTINE 14 MG/24 HOURS TOPICAL PATCH TD SCH (12:24)
[2020-03-29] MEDS: THIAMINE HCL 100 MG TABLET (FP) PO SCH (22:10)
[2020-03-29] MEDS: MELATONIN 5 MG TABLETS PO SCH (22:41)
[2020-03-30] MEDS ORDERED: METHADONE HCL 5 MG TABLET (FOR DETOX USE ONLY) PO ONE (06:00)
[2020-03-30 09:50] VITALS: BP 102/53; PULSE 73; TEMP 97.2
[2020-03-30] MEDS: NICOTINE 14 MG/24 HOURS TOPICAL PATCH TD SCH (10:31)
[2020-03-30] MEDS: PRENATAL VITAMINS W/ FOLIC ACID TABLET (FP) PO SCH (10:31)
== END 2020-03-30 12:12 | disposition home or self-care (01) | DRG 897 ==
LOC: YASAS 17:33 → Y6N 18:30
PROVIDERS: ADMIT Allergy & Immunology; ATTEND Allergy & Immunology
PROC: HZ2ZZZZ Detoxification Services for Substance Abuse Treatment (ICD-10-PCS; principal; 2020-03-25)
DX: F11.23 Opioid dependence with withdrawal (principal); F12.20 Cannabis dependence, uncomplicated; F17.210 Nicotine dependence, cigarettes, uncomplicated; F31.9 Bipolar disorder, unspecified; F19.24 Other psychoactive substance dependence with psychoactive substance-induced mood disorder; R45.89 Other symptoms and signs involving emotional state; R63.8 Other symptoms and signs concerning food and fluid intake; R63.4 Abnormal weight loss; Z68.20 Body mass index [BMI] 20.0-20.9, adult; Z91.19 Patient's noncompliance with other medical treatment and regimen
CPT/HCPCS: 36415; 80053; 85027; 86780; C9803; U0003

== ENCOUNTER 2021-04-18 18:00 | Inpatient (IN) | payer OTHER ==
[2021-04-18] MEDS ORDERED: ACETAMINOPHEN 325 MG TABLET (FP) PO PRN ×4 (19:35→19:58)
[2021-04-18] MEDS ORDERED: MAGNESIUM HYDROX 2400MG/30ML ORAL SUSPENSION 30 ML CUP PO PRN ×2 (19:35→19:58)
[2021-04-18] MEDS ORDERED: BISMUTH SUBSALICYLATE 524 MG/30 ML PO PRN ×2 (19:35→19:58)
[2021-04-18] MEDS ORDERED: MAGNESIUM CITRATE 300 ML BOTTLE PO PRN ×2 (19:35→19:58)
[2021-04-18] MEDS ORDERED: MENTHOL/PHENOL 1 EACH UD MM PRN ×2 (19:35→19:58)
[2021-04-18] MEDS ORDERED: MAG HYDROX/AL HYDROX/SIMETH 30 ML UNIT-DOSE CUP PO PRN ×2 (19:35→19:58)
[2021-04-18] MEDS ORDERED: NICOTINE 10 MG CARTRIDGE (INHALER) IH PRN (19:35)
[2021-04-18] MEDS ORDERED: methaDONE HCL 10 MG TABLET (FOR DETOX USE ONLY) PO ONE ×2 (19:35→19:58)
[2021-04-18] MEDS ORDERED: METHOCARBAMOL 500 MG TABLET PO PRN (19:35)
[2021-04-18] MEDS ORDERED: NICOTINE POLACRILEX 2 MG GUM BUC PRN ×2 (19:35→19:58)
[2021-04-18] MEDS ORDERED: IBUPROFEN 400 MG TABLET (FP) PO PRN ×2 (19:35→19:58)
[2021-04-18] MEDS ORDERED: cloNIDine HCL 0.1 MG TABLET PO PRN ×2 (19:35→19:58)
[2021-04-18] MEDS ORDERED: ONDANSETRON *ODT* 4 MG TABLET SL PRN ×2 (19:35→19:58)
[2021-04-18 20:09] VITALS: BMI 22.9
[2021-04-18] MEDS: THIAMINE HCL 100 MG TABLET (FP) PO SCH (20:59)
[2021-04-18] MEDS: MELATONIN 5 MG TABLETS PO SCH (21:01)
[2021-04-18] MEDS ORDERED: MELATONIN 5 MG TABLETS PO SCH (22:00)
[2021-04-18] MEDS ORDERED: THIAMINE HCL 100 MG TABLET (FP) PO SCH (22:00)
[2021-04-19] MEDS ORDERED: methaDONE HCL 10 MG TABLET (FOR DETOX USE ONLY) ONE (09:19)
[2021-04-19] MEDS ORDERED: NICOTINE 21 MG/24 HOURS TOPICAL PATCH TD SCH (10:00)
[2021-04-19] MEDS ORDERED: PRENATAL VITAMINS W/ FOLIC ACID TABLET (FP) PO SCH (10:00)
[2021-04-19] MEDS: METHOCARBAMOL 500 MG TABLET PO PRN (10:47)
[2021-04-19] MEDS: hydrOXYzine PAMOATE 25 MG CAPSULE (FP) PO PRN (10:47)
[2021-04-19] MEDS: PRENATAL VITAMINS W/ FOLIC ACID TABLET (FP) PO SCH (10:47)
[2021-04-19] MEDS: NICOTINE 14 MG/24 HOURS TOPICAL PATCH TD SCH (10:47)
[2021-04-19] MEDS: THIAMINE HCL 100 MG TABLET (FP) PO SCH (22:39)
[2021-04-19] MEDS: MELATONIN 5 MG TABLETS PO SCH (22:39)
[2021-04-20] MEDS ORDERED: methaDONE HCL 10 MG TABLET (FOR DETOX USE ONLY) PO ONE ×3 (10:00)
[2021-04-20] MEDS: PRENATAL VITAMINS W/ FOLIC ACID TABLET (FP) PO SCH (10:12)
[2021-04-20] MEDS: METHOCARBAMOL 500 MG TABLET PO PRN (10:12)
[2021-04-20] MEDS: NICOTINE 14 MG/24 HOURS TOPICAL PATCH TD SCH (10:12)
[2021-04-20] MEDS: hydrOXYzine PAMOATE 25 MG CAPSULE (FP) PO PRN (10:13)
[2021-04-20 10:28] LABS: HEMATOCRIT 42.4 % (35.4-49); HEMOGLOBIN 14.7 GM/dL (11.7-16.9); MCH 30.1 pg (25.7-33.7); MCHC 34.6 g/dl (32.0-35.9); PLATELET COUNT 202 10^3/uL (134-434); RBC 4.88 M/mm3 (4.00-5.60); RDW 13.3 % (11.9-15.9); WHITE BLOOD COUNT 11.6 K/mm3 (4.0-10.0)
[2021-04-20 10:35] LABS: CALCIUM 9.7 mg/dL (8.5-10.1)
[2021-04-20 10:36] LABS: ALBUMIN 4.1 g/dl (3.4-5.0); BLOOD UREA NITROGEN 15.5 mg/dL (7-18)
[2021-04-20 10:39] LABS: CREATININE 0.9 mg/dL (0.55-1.3)
[2021-04-20 10:41] LABS: BILIRUBIN,TOTAL 1.2 mg/dL (0.2-1); TOT PROT 8.3 g/dl (6.4-8.2)
[2021-04-20 13:26] VITALS: BP 127/77; PULSE 57; TEMP 98.9
[2021-04-22] MEDS ORDERED: methaDONE HCL 10 MG TABLET (FOR DETOX USE ONLY) PO ONE ×3 (10:00)
== END 2021-04-20 13:13 | disposition left against medical advice (07) | DRG 894 ==
LOC: YASAS 18:00 → Y6N 19:36 → UNDOADMIN 19:36 → Y6N 04-19 08:42
PROVIDERS: ADMIT Allergy & Immunology; ATTEND Allergy & Immunology
PROC: HZ2ZZZZ Detoxification Services for Substance Abuse Treatment (ICD-10-PCS; principal; 2021-04-19)
DX: F11.23 Opioid dependence with withdrawal (principal); F12.20 Cannabis dependence, uncomplicated; F17.210 Nicotine dependence, cigarettes, uncomplicated; R63.4 Abnormal weight loss; Z68.23 Body mass index [BMI] 23.0-23.9, adult; Z56.0 Unemployment, unspecified
CPT/HCPCS: 36415; 80053; 85027; 86780; 87811; 93005; 93010; C9803; Q0162; U0003; U0005

== ENCOUNTER 2021-07-24 14:39 | Inpatient (IN) | payer OTHER ==
[2021-07-24] MEDS ORDERED: P-EPHED 60MG/TRIPROLIDI 2.5MG TABLET PO PRN (18:40)
[2021-07-24] MEDS ORDERED: LOPERAMIDE HCL 2 MG CAPSULE PO PRN (18:40)
[2021-07-24] MEDS ORDERED: NICOTINE POLACRILEX 2 MG GUM BC PRN (18:40)
[2021-07-24] MEDS ORDERED: ACETAMINOPHEN 325 MG TABLET (FP) PO PRN (18:40)
[2021-07-24] MEDS ORDERED: IBUPROFEN 400 MG TABLET (FP) PO PRN (18:40)
[2021-07-24] MEDS ORDERED: NICOTINE 10 MG CARTRIDGE (INHALER) IH PRN (18:40)
[2021-07-24] MEDS ORDERED: MAGNESIUM HYDROX 2400MG/30ML ORAL SUSPENSION 30 ML CUP PO PRN (18:40)
[2021-07-24] MEDS ORDERED: MELATONIN 5 MG TABLETS PO PRN (18:40)
[2021-07-24] MEDS ORDERED: hydrOXYzine PAMOATE 25 MG CAPSULE (FP) PO PRN (18:40)
[2021-07-24] MEDS ORDERED: MAG HYDROX/AL HYDROX/SIMETH 30 ML UNIT-DOSE CUP PO PRN (18:40)
[2021-07-24] MEDS ORDERED: MAGNESIUM CITRATE 300 ML BOTTLE PO PRN (18:40)
[2021-07-24] MEDS ORDERED: guaiFENesin 200 MG/10 ML 10 ML UNIT-DOSE CUPS PO PRN (18:40)
[2021-07-24] MEDS ORDERED: BUPRENORPHINE/NALOXONE 2 MG/0.5 MG FILM PACKET SL ONE (18:43)
[2021-07-24] MEDS ORDERED: MENTHOL/PHENOL 1 EACH UD MM PRN (19:02)
[2021-07-24] MEDS ORDERED: ONDANSETRON *ODT* 4 MG TABLET SL PRN (19:02)
[2021-07-24] MEDS ORDERED: BISMUTH SUBSALICYLATE 524 MG/30 ML PO PRN (19:02)
[2021-07-24] MEDS ORDERED: cloNIDine HCL 0.1 MG TABLET PO PRN (19:05)
[2021-07-24] MEDS ORDERED: methaDONE HCL 10 MG TABLET (FOR DETOX USE ONLY) PO ONE (19:05)
[2021-07-24 19:45] VITALS: BMI 21.7
[2021-07-24] MEDS: THIAMINE HCL 100 MG TABLET (FP) PO SCH (22:00)
[2021-07-25] MEDS ORDERED: BUPRENORPHINE/NALOXONE 4 MG/1 MG FILM PACKET SL SCH (10:00)
[2021-07-25] MEDS: METHOCARBAMOL 500 MG TABLET PO PRN ×2 (10:22→22:48)
[2021-07-25] MEDS: PRENATAL VITAMINS W/ FOLIC ACID TABLET (FP) PO SCH (10:22)
[2021-07-25 12:14] LABS: HEMATOCRIT 38.7 % (35.4-49); HEMOGLOBIN 13.2 GM/dL (11.7-16.9); MCH 29.9 pg (25.7-33.7); MCHC 34.1 g/dl (32.0-35.9); MEAN CELL VOLUME 87.6 fl (80-96); MEAN PLT VOLUME 11.4 fl (7.5-11.1); PLATELET COUNT 154 10^3/uL (134-434); RBC 4.42 M/mm3 (4.00-5.60); RDW 13.4 % (11.9-15.9); WHITE BLOOD COUNT 5.8 K/mm3 (4.0-10.0)
[2021-07-25 12:15] LABS: ALBUMIN 3.4 g/dl (3.4-5.0); BLOOD UREA NITROGEN 9.8 mg/dL (7-18); CALCIUM 8.8 mg/dL (8.5-10.1)
[2021-07-25 12:18] LABS: CREATININE 0.7 mg/dL (0.55-1.3)
[2021-07-25 12:20] LABS: BILIRUBIN,TOTAL 0.4 mg/dL (0.2-1); TOT PROT 6.5 g/dl (6.4-8.2)
[2021-07-25 22:23] VITALS: TEMP 97.3
[2021-07-25] MEDS: THIAMINE HCL 100 MG TABLET (FP) PO SCH (22:48)
[2021-07-26 08:49] VITALS: BP 124/67; PULSE 59
[2021-07-26] MEDS ORDERED: methaDONE HCL 10 MG TABLET (FOR DETOX USE ONLY) PO ONE (10:00)
[2021-07-26] MEDS ORDERED: BUPRENORPHINE/NALOXONE 8 MG/2 MG FILM PACKET SL SCH (10:00)
[2021-07-26] MEDS: PRENATAL VITAMINS W/ FOLIC ACID TABLET (FP) PO SCH (10:26)
== END 2021-07-26 09:00 | disposition left against medical advice (07) | DRG 894 ==
LOC: YASAS 14:39 → Y3N 19:23
PROVIDERS: ADMIT Allergy & Immunology; ATTEND Allergy & Immunology
PROC: HZ2ZZZZ Detoxification Services for Substance Abuse Treatment (ICD-10-PCS; principal; 2021-07-24)
DX: F11.23 Opioid dependence with withdrawal (principal); F12.20 Cannabis dependence, uncomplicated; F17.210 Nicotine dependence, cigarettes, uncomplicated; F19.24 Other psychoactive substance dependence with psychoactive substance-induced mood disorder; F31.9 Bipolar disorder, unspecified
CPT/HCPCS: 36415; 80053; 85027; 86780; 87811; C9803-CS; U0003; U0005

== ENCOUNTER 2022-12-04 04:43 | Emergency (ER) | payer OTHER ==
[2022-12-04 05:11] VITALS: BP 109/78; PULSE 78; RESP 18
== END 2022-12-04 05:26 | disposition left against medical advice (07) ==
LOC: JER 04:43
DX: M54.9 Dorsalgia, unspecified (principal)
CPT/HCPCS: 99281-25

== ENCOUNTER 2023-04-08 04:17 | Observation (INO) | payer OTHER ==
[2023-04-08] MEDS ORDERED: ACETAMINOPHEN 1000 MG/100 ML BAG IVPB ONE ×2 (05:06→05:36)
[2023-04-08 05:12] VITALS: BP 125/80; PULSE 96; RESP 20; TEMP 100.4; BMI 17.4
[2023-04-08] MEDS ORDERED: ACETAMINOPHEN INJECTION 100 ML IVPB ONE (05:44)
[2023-04-08] MEDS ORDERED: PIPERACILLIN/TAZOB 4.5 GM 4.5 GM in DEXTROSE 5%-WATER 100 ML IVPB ONE (06:08)
[2023-04-08] MEDS ORDERED: VANCOMYCIN 1,000 MG in DEXTROSE 5%-WATER - 250 ML IVPB ONE (06:09)
[2023-04-08] MEDS ORDERED: VANCOMYCIN 1 GRAM (PRE-DOCKED) 1,000 MG/250 ML BAG IVPB ONE (06:19)
[2023-04-08] MEDS ORDERED: PIPERACILLIN/TAZOB 4.5 GM 4.5 GM/100 ML BAG IVPB ONE (06:19)
[2023-04-08 06:48] LABS: BASO % 0.4 % (0-2.0); EOS % 0.7 % (0-4.5); HEMATOCRIT 33.6 % (35.4-49); HEMOGLOBIN 10.9 GM/dL (11.7-16.9); LYMPH % 4.7 % (8-40); MCH 28.7 pg (25.7-33.7); MCHC 32.4 g/dl (32.0-35.9); MEAN CELL VOLUME 88.6 fl (80-96); MEAN PLT VOLUME 9.5 fl (7.5-11.1); MONO % 12.2 % (3.8-10.2); PLATELET COUNT 277 10^3/uL (134-434); RBC 3.79 M/mm3 (4.00-5.60); RDW 13.6 % (11.9-15.9); WHITE BLOOD COUNT 11.7 K/mm3 (4.0-10.0)
[2023-04-08 06:56] LABS: INR 1.24 (0.83-1.09); PROTHROMBIN TIME (PATIENT) 14.4 SEC (9.7-13.0)
[2023-04-08 06:58] LABS: ACTIVATED PTT 44.1 SECONDS (25.2-36.5)
[2023-04-08 07:09] LABS: POTASSIUM 3.9 mmol/L (3.5-5.1)
[2023-04-08 07:10] LABS: ALBUMIN 2.7 g/dl (3.4-5.0); BLOOD UREA NITROGEN 13.7 mg/dL (7-18); CALCIUM 8.3 mg/dL (8.5-10.1)
[2023-04-08 07:13] LABS: CREATININE 0.6 mg/dL (0.55-1.3)
[2023-04-08 07:15] LABS: BILIRUBIN,TOTAL 0.3 mg/dL (0.2-1); TOT PROT 6.8 g/dl (6.4-8.2)
[2023-04-08 07:55] LABS: LACTIC ACID 3.2 mmol/L (0.4-2.0)
== END 2023-04-08 10:39 | disposition left against medical advice (07) ==
LOC: JER 04:17 → JERBED 07:11
PROVIDERS: ADMIT Internal Medicine; ATTEND Internal Medicine
PROC: 3E033NZ Introduction of Analgesics, Hypnotics, Sedatives into Peripheral Vein, Percutaneous Approach (ICD-10-PCS; principal; 2023-04-08)
PROC: 3E03329 Introduction of Other Anti-infective into Peripheral Vein, Percutaneous Approach (ICD-10-PCS; 2023-04-08)
DX: A41.9 Sepsis, unspecified organism (principal); T85.79XA Infection and inflammatory reaction due to other internal prosthetic devices, implants and grafts, initial encounter; R65.20 Severe sepsis without septic shock; F11.90 Opioid use, unspecified, uncomplicated; F31.9 Bipolar disorder, unspecified; K59.00 Constipation, unspecified; D72.829 Elevated white blood cell count, unspecified; E87.20 Acidosis, unspecified
CPT/HCPCS: 36415; 71046-TC-FY; 71250-TC; 74018-TC-FY; 74176-TC; 80053; 83605; 85025; 85610; 85730; 86850; 86900; 86901; 87040; 93005; 93010; 96365; 96367; 96375; 99285-25; G0378

== ENCOUNTER 2023-05-20 13:54 | Emergency (ER) | payer OTHER ==
[2023-05-20 14:19] VITALS: BP 118/67; PULSE 81; RESP 18; TEMP 98.7; BMI 21.2
== END 2023-05-20 15:42 | disposition home or self-care (01) ==
LOC: JER 13:54
DX: S30.810A Abrasion of lower back and pelvis, initial encounter (principal); R21 Rash and other nonspecific skin eruption; X58.XXXA Exposure to other specified factors, initial encounter
CPT/HCPCS: 99282-25

== ENCOUNTER 2023-07-19 02:19 | Emergency (ER) | payer MEDICARE, OTHER ==
[2023-07-19 02:37] VITALS: BP 112/70; PULSE 82; RESP 16; TEMP 97.7; BMI 23.6
[2023-07-19] MEDS ORDERED: DIPHTH,PERTUSS(ACELL),TET 0.5 ML DISP.SYRIN IM ONE (02:59)
[2023-07-19] MEDS: DIPHTH,PERTUSS(ACELL),TET 0.5 ML DISP.SYRIN IM ONE (03:03)
== END 2023-07-19 03:40 | disposition home or self-care (01) ==
LOC: JER 02:19
PROC: 3E0234Z Introduction of Serum, Toxoid and Vaccine into Muscle, Percutaneous Approach (ICD-10-PCS; principal; 2023-07-19)
DX: S20.419A Abrasion of unspecified back wall of thorax, initial encounter (principal); X58.XXXA Exposure to other specified factors, initial encounter
CPT/HCPCS: 90471; 99283-25

== ENCOUNTER 2023-07-19 03:44 | Inpatient (IN) | payer MEDICARE, OTHER ==
[2023-07-19 04:56] VITALS: BMI 18.9
[2023-07-19] MEDS ORDERED: IBUPROFEN 600 MG TABLET (FP) PO PRN (05:04)
[2023-07-19] MEDS ORDERED: BENZOCAINE/MENTHOL (CHLORASEPTIC ) LOZENGE MM PRN (05:04)
[2023-07-19] MEDS ORDERED: NALOXONE HCL (KLOXXADO) 8 MG SPRAY NS PRN (05:04)
[2023-07-19] MEDS ORDERED: ACETAMINOPHEN 325 MG TABLET (FP) PO PRN (05:04)
[2023-07-19] MEDS ORDERED: P-EPHED 60MG/TRIPROLIDI 2.5MG TABLET PO PRN (05:04)
[2023-07-19] MEDS ORDERED: IBUPROFEN 400 MG TABLET (FP) PO PRN (05:04)
[2023-07-19] MEDS ORDERED: MAG HYDROX/AL HYDROX/SIMETH 30 ML UNIT-DOSE CUP PO PRN (05:04)
[2023-07-19] MEDS ORDERED: POLYETHYLENE GLYCOL (HEALTHYLAX) 3350 17 GM PACKET PO PRN (05:04)
[2023-07-19] MEDS ORDERED: LOPERAMIDE HCL 2 MG CAPSULE PO PRN (05:04)
[2023-07-19] MEDS ORDERED: MAGNESIUM HYDROX 2400MG/30ML ORAL SUSPENSION 30 ML CUP PO PRN (05:04)
[2023-07-19] MEDS ORDERED: NICOTINE POLACRILEX 2 MG GUM BUC PRN (05:04)
[2023-07-19] MEDS ORDERED: BENZONATATE 200 MG CAPSULE PO PRN (05:04)
[2023-07-19] MEDS ORDERED: NALOXONE HCL 0.4 MG/ML VIAL IM PRN (05:04)
[2023-07-19] MEDS ORDERED: guaiFENesin 600 MG TABLET.ER (FP) PO PRN (05:04)
[2023-07-19] MEDS ORDERED: methaDONE HCL 10 MG TABLET PO SCH (07:15)
[2023-07-19 09:48] VITALS: BP 118/69; PULSE 64; RESP 18; TEMP 97.8
[2023-07-19] MEDS ORDERED: methaDONE HCL 10 MG TABLET PO ONE (09:52)
[2023-07-19] MEDS: methaDONE 40 MG, methaDONE 10 MG PO ONE ×2 (10:24→12:13)
[2023-07-19] MEDS: PRENATAL VITAMINS W/ FOLIC ACID TABLET (FP) PO SCH (12:01)
[2023-07-19] MEDS ORDERED: THIAMINE HCL 100 MG TABLET (FP) PO SCH (22:00)
[2023-07-19] MEDS ORDERED: MELATONIN 5 MG TABLETS PO SCH (22:00)
[2023-07-20] MEDS ORDERED: methaDONE 40 MG, methaDONE 10 MG PO SCH (06:00)
== END 2023-07-19 12:55 | disposition left against medical advice (07) | DRG 894 ==
LOC: YASAS 03:44 → Y3NR 06:43
PROVIDERS: ADMIT Allergy & Immunology; ATTEND Allergy & Immunology
PROC: HZ42ZZZ Group Counseling for Substance Abuse Treatment, Cognitive-Behavioral (ICD-10-PCS; principal; 2023-07-19)
DX: F11.20 Opioid dependence, uncomplicated (principal); Z59.02 Unsheltered homelessness; F17.210 Nicotine dependence, cigarettes, uncomplicated; R21 Rash and other nonspecific skin eruption; F91.8 Other conduct disorders; Z91.199 Patient's noncompliance with other medical treatment and regimen due to unspecified reason
CPT/HCPCS: 0241U-QW; 80305; 87070; 87186; 87205; 87811; 90471; 99283-25

== ENCOUNTER 2024-05-11 18:32 | Emergency (ER) | payer MEDICARE, OTHER ==
[2024-05-11 18:50] VITALS: BP 125/75; PULSE 88; RESP 18; TEMP 99; BMI 20.7
== END 2024-05-11 22:04 | disposition home or self-care (01) ==
LOC: JER 18:32
DX: S40.812A Abrasion of left upper arm, initial encounter (principal); W26.8XXA Contact with other sharp object(s), not elsewhere classified, initial encounter
CPT/HCPCS: 99283-25